=== PATIENT | female | born 1945 | race Asian ===

== ENCOUNTER → 2018-02-25 13:49 | Outpatient (CLI) | payer MEDICARE, OTHER, SELFPAY ==
[2018-02-25 14:20] VITALS: BP 132/71; PULSE 71; RESP 18; TEMP 36.8; O2SAT 95
[2018-02-25 15:17] LABS: Estimated Glomerular Filt Rate > 60.0 mL/min (>60)
[2018-02-25] MEDS: ZOLEDRONIC ACID 5 MG in SODIUM CHLORIDE 0.9% 100 ML 318.75 ML IV (15:44)
== END ==
PROVIDERS: Family Provider Family Medicine; PCP Family Medicine; Visit Provider Family Medicine
DX: M81.0 Age-related osteoporosis without current pathological fracture (principal)
CPT/HCPCS: 36415; 36591; 82565; 84520; 96374; J3489

== ENCOUNTER → 2019-03-29 13:23 | Outpatient (CLI) | payer MEDICARE, OTHER, SELFPAY ==
[2019-03-29 16:24] LABS: Alanine Aminotransferase 13 IU/L (9-52); Albumin 4.3 g/dL (3.5-5.0); Albumin Globulin Ratio 1.3 (1.0-2.8); Alkaline Phosphatase 64 U/L (38-126); Aspartate Aminotransferase 21 IU/L (14-36); Bilirubin Total 0.8 mg/dL (0.2-1.3); Blood Urea Nitrogen 15 mg/dL (7-17); Calcium 9.4 mg/dL (8.4-10.2); Carbon Dioxide 29 mmol/L (22-32); Chloride 104 mmol/L (98-107); Cholesterol 219 mg/dL (140-199); Estimated Glomerular Filt Rate > 60.0 mL/min (>60); Globulin 3.2 g/dL (1.7-4.1); Glucose 109 mg/dL (80-110); HDL Cholesterol 54 mg/dL (40-60); HEMOLYSIS 17 (0-50); LDL Cholesterol Calculated 125 mg/dL (<100); Potassium 3.6 mmol/L (3.4-5.1); Sodium 141 mmol/L (137-145); Total Protein 7.5 g/dL (6.3-8.2); Triglycerides 200 mg/dL (35-150)
[2019-03-29 16:41] LABS: Vitamin D 25 Hydroxy (D3) 18.8 ng/mL (30.0-100.0)
== END ==
PROVIDERS: PCP Family Medicine; Visit Provider Family Medicine
DX: E55.9 Vitamin D deficiency, unspecified (principal); M81.0 Age-related osteoporosis without current pathological fracture; I10 Essential (primary) hypertension; E78.5 Hyperlipidemia, unspecified
CPT/HCPCS: 36415; 80053; 80061; 82306

== ENCOUNTER → 2019-03-31 16:00 | Outpatient (CLI) | payer MEDICARE, OTHER, SELFPAY ==
[2019-04-04 18:39] LABS: Fecal Immunochemical Test NOT DETECTED (NOT DETECTED)
== END ==
PROVIDERS: PCP Family Medicine; Visit Provider Family Medicine
DX: Z12.11 Encounter for screening for malignant neoplasm of colon (principal); Z12.12 Encounter for screening for malignant neoplasm of rectum
CPT/HCPCS: 82274

== ENCOUNTER → 2019-08-18 09:38 | Outpatient (CLI) | payer MEDICARE, OTHER, SELFPAY ==
[2019-08-18 11:01] LABS: BUN Creatinine Ratio 21.7 (6-22); Blood Urea Nitrogen 13 mg/dL (7-17); Calcium 9.4 mg/dL (8.4-10.2); Carbon Dioxide 30 mmol/L (22-32); Chloride 106 mmol/L (98-107); Cholesterol 231 mg/dL (140-199); Estimated Glomerular Filt Rate > 60.0 mL/min (>60); Glucose 110 mg/dL (80-110); HDL Cholesterol 73 mg/dL (40-60); HEMOLYSIS < 15 (0-50); LDL Cholesterol Calculated 139 mg/dL (<100); Potassium 3.6 mmol/L (3.4-5.1); Sodium 140 mmol/L (137-145); Triglycerides 93 mg/dL (35-150)
== END ==
PROVIDERS: PCP Family Medicine; Visit Provider Family Medicine
DX: E78.5 Hyperlipidemia, unspecified (principal); R73.03 Prediabetes; E55.9 Vitamin D deficiency, unspecified; I10 Essential (primary) hypertension
CPT/HCPCS: 36415; 80048; 80061; 82306

== ENCOUNTER → 2020-02-11 11:22 | Outpatient (CLI) | payer MEDICARE, OTHER, SELFPAY ==
[2020-02-11 12:44] LABS: Alanine Aminotransferase 14 IU/L (<35); Albumin 4.3 g/dL (3.5-5.0); Albumin Globulin Ratio 1.3 (1.0-2.8); Alkaline Phosphatase 61 U/L (38-126); Aspartate Aminotransferase 24 IU/L (14-36); BUN Creatinine Ratio 20.3 (6-22); Bilirubin Total 0.8 mg/dL (0.2-1.3); Blood Urea Nitrogen 13 mg/dL (7-17); Calcium 9.3 mg/dL (8.4-10.2); Carbon Dioxide 28 mmol/L (22-32); Chloride 108 mmol/L (98-107); Cholesterol 232 mg/dL (140-199); Estimated Glomerular Filt Rate > 60.0 mL/min (>60); Globulin 3.2 g/dL (1.7-4.1); Glucose 114 mg/dL (80-110); HDL Cholesterol 64 mg/dL (40-60); HEMOLYSIS < 15 (0-50); LDL Cholesterol Calculated 143 mg/dL (<100); Potassium 3.9 mmol/L (3.4-5.1); Sodium 140 mmol/L (137-145); Total Protein 7.5 g/dL (6.3-8.2); Triglycerides 125 mg/dL (35-150)
[2020-02-11 13:18] LABS: Hemoglobin A1C% w Est Avg Glu 5.5 % (4.0-6.0)
== END ==
PROVIDERS: PCP Family Medicine; Referring Provider Family Medicine; Visit Provider Family Medicine
DX: E78.5 Hyperlipidemia, unspecified (principal); I10 Essential (primary) hypertension; R73.03 Prediabetes
CPT/HCPCS: 36415; 80053; 80061; 83036

== ENCOUNTER 2020-08-24 18:36 | Emergency (ER) | payer MEDICARE, OTHER, SELFPAY ==
[2020-08-24 18:40] VITALS: BP 137/62; PULSE 70; RESP 18; TEMP 36.7; O2SAT 99; BMI 21.4
[2020-08-24 18:50] LABS: Add Manual Diff / Slide Review NO; Basophils Absolute Auto 200 /uL (0-100); Basophils Percent Auto 1.7 % (0-2); Eosinophils Absolute Auto 100 /uL (0-450); Eosinophils Percent Auto 0.6 % (2-4); Hematocrit 37.8 % (36-46); Hemoglobin 12.2 g/dL (12.0-16.0); Lymphocytes Absolute Auto 5300 /uL (1100-4500); Lymphocytes Percent Auto 39.5 % (25-40); Mean Corpuscular HGB Conc 32.1 % (30-36); Mean Corpuscular Volume 87.3 fL (80-100); Monocytes Absolute Auto 400 /uL (0-900); Monocytes Percent Auto 2.7 % (3-14); Neutrophils Absolute Auto 7400 /uL (1500-7000); Neutrophils Percent Auto 55.5 % (50-75); Platelet Count 321 X10^3/uL (150-400); Red Blood Cell Count 4.34 X10^6/uL (4.0-5.2); Red Cell Distribution Width 14.5 % (11.6-14.8); White Blood Cell Count 13.4 X10^3/uL (4.5-11.0)
--- NOTE | 2020-08-24 19:14 | ED.CHESTPAIN ---
HPI - Chest Pain General Chief Complaint: Chest Pain Stated Complaint: Chest Pain Time Seen by Provider: 08/24/20 18:37 Source: patient and EMS Mode of arrival: EMS Limitations: no limitations History of Present Illness HPI narrative: Patient is a 75-year-old female brought in by EMS for evaluation of symptoms that occurred approximately 1 hour prior to arrival. She states she was laying on the couch watching TV when she had a fairly sudden onset of sharp retrosternal chest pain. She also states that was in her upper abdomen. The pain continued to increase over the next several minutes to the point where she states it was very intense. She was not having any shortness of breath. She did not think it was worse with palpation or movement or breathing. Her contacted EMS. After EMS arrived the patient had 1 episode where she vomited a couple times. There was no blood in the vomit. After the vomiting she stated that her symptoms improved tremendously. She was given aspirin and nitroglycerin by EMS. For the time she arrives here in the emergency department she is completely asymptomatic. Patient's stated that she had a very similar episode about 10 years ago where she was having chest discomfort and shortly after arriving to the emergency department she vomited and her symptoms then resolved. Related Data Home Medications Medication Instructions Recorded Confirmed ACETAMINOPHEN (TYLENOL ARTHRITIS) 650 mg PO SEE INSTRUCTIONS #0 02/25/13 04/26/20 Previous Rx's Medication Instructions Recorded lidocaine [Lidoderm] 1 patch TOPICAL Q12H #1 box 05/01/17 diclofenac sodium [Voltaren] 1 tobias TOPICAL BID PRN #100 gm 11/28/17 [zometa] 4 mg IV X1 #4 mg 02/10/18 ketoconazole 2 % topical cream 1 applictn TOP DAILY #30 gram 02/27/18 varicella-zoster [id number]-[id number] (PF) 50 50 mcg IM ONCE #1 each 02/27/18 mcg/0.5 mL IM susp, kit cholecalciferol (vitamin D3) 1,250 50,000 unit PO QWEEK #8 cap 05/26/19 mcg (50,000 unit) capsule bupropion HCl 150 mg tablet,12 hr 150 mg PO BID #60 each 02/14/20 sustained-release amlodipine 10 mg tablet 10 mg PO DAILY #90 tab 04/26/20 atorvastatin 20 mg tablet 20 mg PO BEDTIME #90 tab 08/09/20 Allergies Allergy/AdvReac Type Severity Reaction Status Date / Time Penicillins [PENICILLINS] Allergy Unknown FAMILY HX Verified 04/26/20 11:51 Review of Systems Constitutional Constitutional: Denies fever(s) Cardiovascular Cardiovascular: Reports chest pain and Denies dyspnea Respiratory Respiratory: Denies dyspnea Gastrointestinal Gastrointestinal: Denies change in bowel habits and Reports vomiting Genitourinary Genitourinary: Denies dysuria Genitourinary: Denies dysuria Musculoskeletal Musculoskeletal: Denies arthralgias and Denies myalgias Integumentary/Breasts Skin/Breast: Denies rash Neurologic Neurologic: Denies behavioral changes Psychiatric Psychiatric: Denies behavioral changes Hematologic/Lymphatic Hematologic/Lymphatic: Denies easy bleeding and Denies easy bruising Allergic/Immunologic Allergic/Immunologic: Denies urticaria Patient History Medical History Essential hypertension (Chronic 05/01/11) Gastroesophageal reflux disease (Chronic 04/05/13) 5 (Resolved) Hyperlipidemia (Chronic 05/06/14) Osteoarthritis (Chronic 05/01/11) Osteoporosis (Chronic 05/17/15) Postherpetic neuralgia (Chronic 05/01/17) Shingles (Resolved 03/27/17) Tinnitus (Resolved) Tobacco use disorder (Chronic 05/01/11) Surgical History (Updated 07/22/18 @ 16:41 by Lizette Holloway) History of endoscopy (Resolved 07/05/13) History of esophagogastroduodenoscopy (EGD) (Resolved 05/27/13) History of laparoscopic cholecystectomy (Resolved 07/06/13) Status post blepharoplasty of both eyes (Resolved 08/26/12) Social History Smoking Status: Current every day smoker quit status: considering quitting Smoking Status: Current every day smoker Substance Use Type: marijuana Exam Initial Vital Signs Initial Vital Signs: Vital Signs Temperature 98.1 F 08/24/20 18:40 Pulse Rate 70 08/24/20 18:40 Respiratory Rate 18 08/24/20 18:40 Blood Pressure 137/62 08/24/20 18:40 Pulse Oximetry 99 08/24/20 18:40 Const General: cooperative and comfortable Limitations: mental status not altered HENMT Head: normal to inspection and normocephalic Resp Effort & Inspection: normal respiratory effort Auscultation: clear to auscultation bilaterally Cardio Rate: regular rate Rhythm: regular rhythm GI Inspection: non-distended Palpation: soft Skin Lesions: no lesions Rashes: no rashes Neuro General: patient alert and patient awake Cognition: normal cognition Speech: speech normal Extrem General: normal to inspection and capillary refill normal Psych Appearance: grossly normal and well kempt Scores GCS Hubert coma scale eye opening: Spontaneous [place] coma scale verbal response: Orientated [place] coma scale motor response: Obey commands Hubert coma scale total score: 15 Course Orders Ordered: ED Orders 08/24/20 18:20 Complete Blood Count AUTO DIFF Stat Comprehensive Metabolic Panel Stat Lipase Stat Troponin & CK Cardiac Panel Stat 08/24/20 18:38 EKG-12 Lead Stat Vital Signs Vital signs: Vital Signs - 8 hr 08/24/20 18:40 08/24/20 19:18 08/24/20 19:30 Temperature 98.1 F Pulse Rate 70 65 65 Respiratory Rate 18 23 23 Blood Pressure 137/62 133/60 132/59 L Pulse Oximetry 99 98 97 08/24/20 20:00 Temperature Pulse Rate 67 Respiratory Rate 25 H Blood Pressure 133/60 Pulse Oximetry 98 MDM - Chest Pain Lab Data Attestation: I reviewed the patient's lab results. Result diagrams: 08/24/20 18:20 08/24/20 18:20 Labs: Lab Results 08/24/20 08/24/20 Range/Units 18:20 18:20 WBC 13.4 H (4.5-11.0) X10^3/uL RBC 4.34 (4.0-5.2) X10^6/uL Hgb 12.2 (12.0-16.0) g/dL Hct 37.8 (36-46) % MCV 87.3 (80-100) fL MCH 28.0 (26-34) PG MCHC 32.1 (30-36) % RDW 14.5 (11.6-14.8) % Plt Count 321 (150-400) X10^3/uL Neut % (Auto) 55.5 (50-75) % Lymph % (Auto) 39.5 (25-40) % [place] % (Auto) 2.7 L (3-14) % Eos % (Auto) 0.6 L (2-4) % Baso % (Auto) 1.7 (0-2) % Neut # (Auto) 7400 H (0638-4773) /uL Lymph # (Auto) 5300 H (5745-6631) /uL [place] # (Auto) 400 (0-900) /uL Eos # (Auto) 100 (0-450) /uL Baso # (Auto) 200 H (0-100) /uL Sodium 140 (137-145) mmol/L Potassium 3.2 L (3.4-5.1) mmol/L Chloride 107 (98-107) mmol/L Carbon Dioxide 24 (22-32) mmol/L BUN 15 (7-17) mg/dL Creatinine 0.56 (0.52-1.04) mg/dL Estimated GFR > 60.0 (>60) mL/min BUN/Creatinine Ratio 26.8 H (6-22) Glucose 144 H (80-110) mg/dL Calcium 9.3 (8.4-10.2) mg/dL Total Bilirubin 0.4 (0.2-1.3) mg/dL AST 42 H (14-36) IU/L ALT 36 H (<35) IU/L Alkaline Phosphatase 70 (38-126) U/L Total Creatine Kinase 50 (30-135) U/L CK-MB (CK-2) TNP CK-MB (CK-2) Rel Index TNP Troponin I < 0.012 (0.01-0.034) ng/mL Total Protein 7.8 (6.3-8.2) g/dL Albumin 4.2 (3.5-5.0) g/dL Globulin 3.6 (1.7-4.1) g/dL Albumin/Globulin Ratio 1.2 (1.0-2.8) Lipase 83 (23-300) U/L ECG Data Attestation: I personally reviewed and interpreted this ECG as follows: Prior ECG tracings: not available for review Interpretation: Sinus rhythm Ventricular rate is 71 Normal axis Normal QRS Normal QTC No ST T wave changes MDM Narrative Medical decision making narrative: Patient with a nonischemic EKG. Asymptomatic. Troponin negative. Symptoms resolved after the episode of vomiting. I do have low suspicion for ACS and more suspicion for a GI etiology the symptoms. We did discuss starting her on reflux medications. She is going to contact her primary provider for follow-up. She expressed understanding and agreement. Discharge Plan Departure Patient Disposition: Home Clinical Impression: Atypical chest pain, Vomiting Discharge Date/Time: 08/24/20 20:43 Instructions: DI for Atypical Chest Pain, DI for Vomiting -- Adult Activity Restrictions/Additional Instructions: Continue all of your medications as directed and I also recommend that you start taking a medicine called famotidine. This can be purchased [id number]. Helps with potential reflux issues like we discussed. Contact your primary provider to discuss the indications for a endoscopy. Return to the emergency department for any new or worsening symptoms Prescriptions: No Action ACETAMINOPHEN (TYLENOL ARTHRITIS) 650 mg PO SEE INSTRUCTIONS Qty: 0 RF: 0 lidocaine [Lidoderm] 1 EACH adhesive patch,medicated 1 patch Topical Q12H Qty: 1 RF: 0 diclofenac sodium [Voltaren] 1 % gel 1 tobias Topical BID PRNQty: 100 RF: 0 [zometa] 4 mg IV X1 Qty: 4 RF: 0 atorvastatin 20 mg tablet 20 mg PO BEDTIME Qty: 90 RF: 0 amlodipine 10 mg tablet 10 mg PO DAILY Qty: 90 RF: 1 ketoconazole 2 % cream 1 applictn TOP DAILY Qty: 30 RF: 0 varicella-zoster gE-AS01B (PF) [Shingrix (PF)] 50 mcg/0.5 mL suspension for reconstitution 50 mcg IM ONCE Qty: 1 RF: 0 cholecalciferol (vitamin D3) 50,000 unit capsule 50,000 unit PO QWEEK Qty: 8 RF: 0 bupropion HCl 150 mg tablet sustained-release 12 hr 150 mg PO BID Qty: 60 RF: 1 Referrals: Liset Edwards DO [Primary Care Provider] -
[2020-08-24 19:18] VITALS: BP 133/60; PULSE 65; RESP 23; O2SAT 98
[2020-08-24 19:30] VITALS: BP 132/59; PULSE 65; RESP 23; O2SAT 97
[2020-08-24 19:50] LABS: Alanine Aminotransferase 36 IU/L (<35); Albumin 4.2 g/dL (3.5-5.0); Albumin Globulin Ratio 1.2 (1.0-2.8); Alkaline Phosphatase 70 U/L (38-126); Aspartate Aminotransferase 42 IU/L (14-36); BUN Creatinine Ratio 26.8 (6-22); Bilirubin Total 0.4 mg/dL (0.2-1.3); Blood Urea Nitrogen 15 mg/dL (7-17); Calcium 9.3 mg/dL (8.4-10.2); Carbon Dioxide 24 mmol/L (22-32); Chloride 107 mmol/L (98-107); Creatine Kinase 50 U/L (30-135); Estimated Glomerular Filt Rate > 60.0 mL/min (>60); Globulin 3.6 g/dL (1.7-4.1); Glucose 144 mg/dL (80-110); HEMOLYSIS < 15 (0-50); Lipase 83 U/L (23-300); Potassium 3.2 mmol/L (3.4-5.1); Sodium 140 mmol/L (137-145); Total Protein 7.8 g/dL (6.3-8.2)
[2020-08-24 20:00] VITALS: BP 133/60; PULSE 67; RESP 25; O2SAT 98
[2020-08-24 20:01] LABS: Troponin I < 0.012 ng/mL (0.01-0.034)
== END 2020-08-24 20:43 | disposition home or self-care (01) ==
PROVIDERS: Emergency Provider Emergency Medicine; PCP Family Medicine
DX: R07.89 Other chest pain (principal); R11.10 Vomiting, unspecified
CPT/HCPCS: 80053; 82550; 83690; 84484; 85025; 93005; 93010; 99283; 99284

== ENCOUNTER → 2020-08-31 12:14 | Outpatient (CLI) | payer MEDICARE, OTHER, SELFPAY ==
[2020-08-31 13:19] LABS: Add Manual Diff / Slide Review NO; Basophils Absolute Auto 0 /uL (0-100); Basophils Percent Auto 0.4 % (0-2); Eosinophils Absolute Auto 200 /uL (0-450); Eosinophils Percent Auto 2.2 % (2-4); Hematocrit 36.9 % (36-46); Hemoglobin 12.4 g/dL (12.0-16.0); Lymphocytes Absolute Auto 2000 /uL (1100-4500); Lymphocytes Percent Auto 25.2 % (25-40); Mean Corpuscular HGB Conc 33.6 % (30-36); Mean Corpuscular Hemoglobin 29.3 PG (26-34); Mean Corpuscular Volume 87.3 fL (80-100); Monocytes Absolute Auto 500 /uL (0-900); Neutrophils Absolute Auto 5300 /uL (1500-7000); Neutrophils Percent Auto 66.2 % (50-75); Platelet Count 442 X10^3/uL (150-400); Red Blood Cell Count 4.23 X10^6/uL (4.0-5.2); Red Cell Distribution Width 14.6 % (11.6-14.8); White Blood Cell Count 8.1 X10^3/uL (4.5-11.0)
== END ==
PROVIDERS: PCP Family Medicine; Referring Provider Family Medicine; Visit Provider Family Medicine
DX: R04.0 Epistaxis (principal); R07.89 Other chest pain
CPT/HCPCS: 36415; 85025

== ENCOUNTER → 2020-09-11 10:07 | Outpatient (CLI) | payer MEDICARE, OTHER, SELFPAY ==
[2020-09-11 10:51] LABS: COVID19 -Nasal RAPID Negative (Negative)
== END ==
PROVIDERS: PCP Family Medicine; Visit Provider Family Medicine
DX: Z01.812 Encounter for preprocedural laboratory examination (principal); Z11.59 Encounter for screening for other viral diseases
CPT/HCPCS: 87635; C9803

== ENCOUNTER → 2020-09-12 09:27 | Outpatient (CLI) | payer MEDICARE, OTHER, SELFPAY ==
--- NOTE | 2020-09-12 09:29 | DI.NM.S_ITS ---
PROCEDURE: NM ERIC PERF SPECT REST & STR Rest and exercise myocardial perfusion SPECT with gated imaging and ejection fraction RADIOPHARMACEUTICAL: 11.9 mCi Tc-99m sestamibi IV at rest and 26.0 mCi Tc-99m sestamibi IV at peak exercise. A one day-protocol was performed. INDICATIONS: Chest pain TECHNIQUE: Radiopharmaceutical was injected at peak stress test, and also at rest. SPECT images were obtained. SPECT myocardial perfusion images were displayed in short axis, horizontal long axis, and vertical long axis views. Gated images were reviewed using [employer] software. COMPARISON: None. CARDIAC STRESS: A standard Dre treadmill exercise tolerance test was performed by the patient under the supervision of an attending staff. The patient exercised for 3 minutes and 50 seconds; functional aerobic impairment (ARMINDA) is +20% on sedentary scale. Hemodynamic data: There is normal blood pressure and heart rate response to exercise stress. Patient achieved 96% of maximum predicted heart rate at peak exercise. Symptoms: Patient denied chest pain during exercise. EKG: No diagnostic EKG changes of ischemia; no ectopy. FINDINGS: Raw data: There is good myocardial labeling by radiotracer. No significant motion artifacts. Xnis-az-[id number] ratio is 0.34 (normal is less than 0.38 for sestamibi tracer, and less than 0.50 for thallium tracer). Left ventricle function: Gated images demonstrate normal left ventricle wall thickening. No segmental wall motion abnormality. No transient ischemic dilation; TID is 0.94 (normal less than 1.3). The left ventricle resting end-diastolic volume is 73 mL. Left ventricle stress ejection fraction is 87%; normal values are above 45%. Myocardial perfusion: There is normal distribution of activity in the left and right ventricular myocardium. No fixed or reversible perfusion defects. IMPRESSION: Low risk, normal treadmill nuclear stress test. 1) No perfusion evidence of ischemia or infarction. 2) Normal left ventricular size, wall motion, and systolic function (EF post stress 87%). 3) No ECG evidence of ischemia or infarction. 4) No angina during the study. 5) Reduced exercise tolerance (4.6 METs, ARMINDA +20%). Target heart rate achieved. Appropriate BP response to exercise. 6) Compared to the nuclear stress test done 04/15/2013, no significant change. Dictated by: Eva Hernández MD on 09/12/2020 at 17:26 Approved by: Eva Hernández MD on 09/12/2020 at 17:29
--- NOTE | 2020-09-12 14:32 | PM.TREADMILL ---
Cardiac Stress Test Report Referral & Results Date Patient Seen: 09/12/20 Requesting provider: Liset Edwards Indication: Chest discomfort Rest ECG: Unremarkable Procedure Note: Today following both written and verbal informed consent the patient was exercised according to a standard Dre protocol patient went for a total of 3 minutes 50 seconds at stage I Dre protocol, achieving a maximum heart rate of 138 maximum systolic blood pressure of 186. This is approximately 4.6 METS. Exercise was terminated at this point because of patient was unable to go any faster. Patient was also given Cardiolite through a previously started Hep-Lock IV by the diagnostic imaging staff approximately 1 minute prior to the cessation of exercise. No ST-T segment changes, normal heart rate and blood pressure response. Function aerobic impairment rates about 0 on the sedentary scale. Oxygen saturation 96% at peak exercise Impression: No evidence of ischemia Please see perfusion imaging report as well Please note: Actual ECG tracings can be found in the PACS system.
== END ==
PROVIDERS: PCP Family Medicine; Referring Provider Family Medicine; Visit Provider Family Medicine
DX: R07.9 Chest pain, unspecified (principal); R07.89 Other chest pain
CPT/HCPCS: 78452; 93016; 93017; 93018; A9502

== ENCOUNTER → 2021-12-05 12:40 | Outpatient (CLI) | payer MEDICARE, OTHER, SELFPAY ==
[2021-12-05 13:53] LABS: Alanine Aminotransferase 18 IU/L (<35); Albumin 4.1 g/dL (3.5-5.0); Albumin Globulin Ratio 1.4 (1.0-2.8); Alkaline Phosphatase 84 U/L (38-126); Aspartate Aminotransferase 21 IU/L (14-36); BUN Creatinine Ratio 26.5 (6-22); Bilirubin Total 0.5 mg/dL (0.2-1.3); Blood Urea Nitrogen 18 mg/dL (7-17); Calcium 9.4 mg/dL (8.4-10.2); Carbon Dioxide 29 mmol/L (22-32); Chloride 106 mmol/L (98-107); Cholesterol 155 mg/dL (140-199); Estimated Glomerular Filt Rate > 60.0 mL/min (>60); Globulin 2.9 g/dL (1.7-4.1); Glucose 120 mg/dL (80-110); HDL Cholesterol 77 mg/dL (40-60); HEMOLYSIS < 15 (0-50); LDL Cholesterol Calculated 48 mg/dL (<100); Potassium 4.1 mmol/L (3.4-5.1); Sodium 140 mmol/L (137-145); Triglycerides 151 mg/dL (35-150)
[2021-12-05 16:54] LABS: Creatinine Urine Random 215.9 mg/dL
[2021-12-05 16:57] LABS: Microalbumi Creatinin Ratio Ur 22.6 ug/mg CR (<30); Microalbumin Urine Random 4.9 mg/dL (0-1.6)
== END ==
PROVIDERS: PCP Family Medicine; Referring Provider Family Medicine; Visit Provider Family Medicine
DX: E78.5 Hyperlipidemia, unspecified (principal); I10 Essential (primary) hypertension
CPT/HCPCS: 36415; 80053; 80061; 82043; 82570

== ENCOUNTER 2022-04-03 16:55 | Inpatient (IN) | payer MEDICARE, OTHER, SELFPAY ==
[2022-04-03 17:13] VITALS: BP 104/51; PULSE 72; RESP 16; TEMP 37.5; O2SAT 96; BMI 20.9
[2022-04-03 17:33] LABS: Add Manual Diff / Slide Review NO; Basophils Absolute Auto 0 /uL (0-100); Basophils Percent Auto 0.3 % (0-2); Eosinophils Absolute Auto 100 /uL (0-450); Eosinophils Percent Auto 0.7 % (2-4); Hematocrit 30.7 % (36-46); Hemoglobin 10.3 g/dL (12.0-16.0); Lymphocytes Absolute Auto 3500 /uL (1100-4500); Lymphocytes Percent Auto 28.4 % (25-40); Mean Corpuscular HGB Conc 33.6 % (30-36); Mean Corpuscular Hemoglobin 29.4 PG (26-34); Mean Corpuscular Volume 87.6 fL (80-100); Monocytes Absolute Auto 500 /uL (0-900); Monocytes Percent Auto 3.9 % (3-14); Neutrophils Absolute Auto 8200 /uL (1500-7000); Neutrophils Percent Auto 66.7 % (50-75); Platelet Count 344 X10^3/uL (150-400); Red Blood Cell Count 3.51 X10^6/uL (4.0-5.2); Red Cell Distribution Width 14.1 % (11.6-14.8); White Blood Cell Count 12.3 X10^3/uL (4.5-11.0)
[2022-04-03 17:34] LABS: INR 1.1 (0.9-1.3); Prothrombin Time 11.9 SECONDS (10.1-12.7)
[2022-04-03 17:36] LABS: PTT Partial Thromboplastin Tim 29 SECONDS (26.4-36.2)
[2022-04-03 17:38] LABS: Alanine Aminotransferase 19 IU/L (<35); Albumin 3.6 g/dL (3.5-5.0); Albumin Globulin Ratio 1.4 (1.0-2.8); Alkaline Phosphatase 42 U/L (38-126); Aspartate Aminotransferase 27 IU/L (14-36); BUN Creatinine Ratio 56.9 (6-22); Bilirubin Total 0.9 mg/dL (0.2-1.3); Blood Urea Nitrogen 33 mg/dL (7-17); Calcium 8.7 mg/dL (8.4-10.2); Carbon Dioxide 26 mmol/L (22-32); Chloride 107 mmol/L (98-107); Estimated Glomerular Filt Rate > 60 mL/min (>60); Globulin 2.6 g/dL (1.7-4.1); Glucose 146 mg/dL (80-110); HEMOLYSIS 41 (0-50); Potassium 3.7 mmol/L (3.4-5.1); Sodium 136 mmol/L (137-145); Total Protein 6.2 g/dL (6.3-8.2)
[2022-04-03 18:02] VITALS: PULSE 70; RESP 19; O2SAT 97
[2022-04-03 18:04] VITALS: BP 114/58; PULSE 74; RESP 16; O2SAT 97
--- NOTE | 2022-04-03 18:12 | ED.GIBLEED ---
HPI - GI Bleed General Chief complaint: GI Bleed Stated complaint: GI bleed Time Seen by Provider: 04/03/22 18:07 Source: patient and family Mode of arrival: EMS History of Present Illness HPI Narrative: 76F daily smoker with history of hypertension and hyperlipidemia presents with ?multiple episodes of vomiting bright red blood over the course of last night and this morning. Additionally she has had the passage of dark black stool. She has a history of bleeding ulcers in the past in 2011 and possibly 2015. She denies any heavy alcohol or liver history. She does not take any blood thinners or anti-inflammatories given her history of ulcers. She has begun to feel a bit of burning in her upper abdomen and feels lightheaded. She has had no fever or chills denies any chest pain or shortness of breath. Related Data Home Medications Medication Instructions Recorded Confirmed ACETAMINOPHEN (TYLENOL ARTHRITIS) 650 mg PO SEE INSTRUCTIONS #0 02/25/13 04/03/22 Previous Rx's Medication Instructions Recorded diclofenac sodium 1 % topical gel 1 tobias TOPICAL BID PRN #100 gm 11/28/17 (Voltaren) amlodipine 10 mg tablet 10 mg PO DAILY #90 tab 01/30/22 atorvastatin 20 mg tablet See Rx Instructions .ROUTE 01/31/22 .COMPLEX #90 tab Allergies Allergy/AdvReac Type Severity Reaction Status Date / Time Penicillins [PENICILLINS] Allergy Unknown FAMILY HX Verified 12/06/21 13:48 Review of Systems Review of Systems Narrative: GENERAL: See HPI HEENT: Denies sinus pain, ear pain, sore throat, difficulty swallowing, dizziness. RESPIRATORY: Denies dyspnea, cough, wheezing, hemoptysis, sputum. CARDIOVASCULAR: Denies chest pain, palpitations, orthopnea, edema, GASTROINTESTINAL: See HPI : Denies dysuria, frequency, incontinence, hematuria, urinary retention. MUSCULOSKELETAL: denies weakness, joint pain, or bony pain SKIN: Denies rash, skin lesions, or other NEUROLOGIC: Denies weakness, headache, numbness, change in speech, confusion, seizures, incoordination. PSYCHIATRIC: No concerning psychosocial issues. 12 point review of systems is negative except for those stated above Patient History Medical History Acute right-sided low back pain without sciatica Chronic pain in right shoulder Essential hypertension (07/06/11) Gastroesophageal reflux disease (04/05/13) 5 Hyperlipidemia (05/06/14) Osteoarthritis (05/01/11) Osteoporosis (05/17/15) Pelvic somatic dysfunction Postherpetic neuralgia (05/01/17) Sacral region somatic dysfunction Segmental and somatic dysfunction of abdomen and other regions Shingles (03/27/17) Tinnitus Tobacco use disorder (05/01/11) Surgical History History of endoscopy (07/05/13) History of esophagogastroduodenoscopy (EGD) (05/27/13) History of laparoscopic cholecystectomy (07/06/13) Status post blepharoplasty of both eyes (08/26/12) Family History Father Old age Mother Renal failure Brother Cerebral aneurysm Brother Down's syndrome Social History household members: spouse Smoking Status: Current some day smoker quit status: considering quitting alcohol intake: current Smoking Status: Current some day smoker Substance Use Type: marijuana Exam Narrative Exam Narrative: GENERAL: [76] year old patient appears stated age. Well-developed patient, in mild distress. HEAD: Atraumatic. Normocephalic. EYES: Pupils equal round and reactive. Extraocular motions intact. No scleral icterus. No injection or drainage. ENT: Nose without bleeding, purulent drainage. Throat without erythema, tonsillar hypertrophy or exudate. Airway patent. NECK: Trachea midline. Non tender CARDIOVASCULAR: Regular rate and rhythm without murmurs, gallops, or rubs. RESPIRATORY: Clear to auscultation. Breath sounds equal bilaterally. No wheezes, rales, or rhonchi. GASTROINTESTINAL: Abdomen soft, non-tender, nondistended. EXTREMITIES: No edema or joint tenderness. BACK: Nontender without deformity or crepitance. No flank tenderness. NEURO: AOx3. SKIN: No rash or erythema of visible areas Initial Vital Signs Initial Vital Signs: Vital Signs Temperature 99.5 F 04/03/22 17:13 Pulse Rate 72 04/03/22 17:13 Respiratory Rate 16 04/03/22 17:13 Blood Pressure 104/51 L 04/03/22 17:13 Pulse Oximetry 96 06/08/22 17:13 Course Course Course Narrative: Sigourney-Blatchford Bleeding Score (GBS) from [email or web address] on 04/03/2022 All calculations should be rechecked by clinician prior to use RESULT SUMMARY: 7 points A GBS greater than zero suggests a ?High Risk? GI bleed that is likely to require ?medical intervention?: transfusion, endoscopy, or surgery. A higher GBS also correlated with a higher likelihood of needing intervention (scores >= are associated with >50% risk of needing intervention) INPUTS: Hemoglobin ?> 10.3 g/dL BUN ?> 56.9 mg/dL Initial systolic BP ?> 107 mm Hg Sex ?> 1 = Female Heart rate >=00 ?> 0 = No Melena present ?> 1 = Yes Recent syncope ?> 0 = No Hepatic disease history ?> 0 = No Cardiac failure present ?> 0 = No 1947 -working on obtaining records from [facility] from 2016 visit Orders Ordered: ED Orders 04/03/22 17:43 COVID19 -Nasal RAPID/Pre-Proc Stat Acetaminophen (Acetaminophen 325 Mg Tablet) 650 mg PO Q6HR PRN PRN Reason: Fever/Mild Pain (1-3) Amlodipine Besylate (Amlodipine 5 Mg Tablet) 10 mg PO DAILY ONUR Atorvastatin Calcium (Atorvastatin 20 Mg Tablet) 20 mg PO BEDTIME [facility] Last Admin: 04/03/22 20:53 Dose: 20 mg Documented by: [email or web address] Sodium Chloride (Normal Saline 0.9%) 1,000 mls @ 100 mls/hr IV CONT [facility] Last Admin: 04/03/22 21:53 Dose: 100 mls/hr Documented by: COLLIN Ondansetron HCl (Ondansetron 4 Mg/2 Ml Inj) 4 mg IV Q6HR PRN PRN Reason: Nausea And Vomiting Pantoprazole Sodium (Pantoprazole 40 Mg Vial) 40 mg IV BID [facility] Last Admin: 04/03/22 21:53 Dose: 40 mg Documented by: COLLIN Discontinued Medications Pantoprazole Sodium (Pantoprazole 40 Mg Vial) 80 mg IV NOW ONE Stop: 04/03/22 18:12 Last Admin: 04/03/22 18:37 Dose: 80 mg Documented by: TATIANA Consultations Consultation #1: discussed with Dr. Dwyer (Gen Surg). Happy to consult. Recommends PPI, NPO after midnight. No need for ABX. Admit to hospitalist Vital Signs Vital signs: Vital Signs - 8 hr 04/03/22 18:30 Pulse Rate 78 Respiratory Rate 25 H Blood Pressure 117/57 L Pulse Oximetry 97 MDM - GI Bleed Lab Data Result diagrams: 04/03/22 22:51 04/03/22 16:50 Labs: Lab Results 04/03/22 04/03/22 04/03/22 Range/Units 16:50 16:50 16:50 WBC 12.3 H (4.5-11.0) X10^3/uL RBC 3.51 L (4.0-5.2) X10^6/uL Hgb 10.3 L (12.0-16.0) g/dL Hct 30.7 L (36-46) % MCV 87.6 (80-100) fL MCH 29.4 (26-34) PG MCHC 33.6 (30-36) % RDW 14.1 (11.6-14.8) % Plt Count 344 (150-400) X10^3/uL Neut % (Auto) 66.7 (50-75) % Lymph % (Auto) 28.4 (25-40) % [place] % (Auto) 3.9 (3-14) % Eos % (Auto) 0.7 L (2-4) % Baso % (Auto) 0.3 (0-2) % Neut # (Auto) 8200 H (9320-6040) /uL Lymph # (Auto) 3500 (2320-1714) /uL [place] # (Auto) 500 (0-900) /uL Eos # (Auto) 100 (0-450) /uL Baso # (Auto) 0 (0-100) /uL PT 11.9 (10.1-12.7) SECONDS INR 1.1 (0.9-1.3) APTT 29 (26.4-36.2) SECONDS Sodium 136 L (137-145) mmol/L Potassium 3.7 (3.4-5.1) mmol/L Chloride 107 (98-107) mmol/L Carbon Dioxide 26 (22-32) mmol/L BUN 33 H (7-17) mg/dL Creatinine 0.58 (0.52-1.04) mg/dL Estimated GFR > 60 (>60) mL/min BUN/Creatinine Ratio 56.9 H (6-22) Glucose 146 H (80-110) mg/dL Calcium 8.7 (8.4-10.2) mg/dL Total Bilirubin 0.9 (0.2-1.3) mg/dL AST 27 (14-36) IU/L ALT 19 (<35) IU/L Alkaline Phosphatase 42 (38-126) U/L Total Protein 6.2 L (6.3-8.2) g/dL Albumin 3.6 (3.5-5.0) g/dL Globulin 2.6 (1.7-4.1) g/dL Albumin/Globulin Ratio 1.4 (1.0-2.8) SARS-CoV-2 (PCR) (Negative) Blood Type Antibody Screen 04/03/22 04/03/22 Range/Units 17:11 17:43 WBC (4.5-11.0) X10^3/uL RBC (4.0-5.2) X10^6/uL Hgb (12.0-16.0) g/dL Hct (36-46) % MCV (80-100) fL MCH (26-34) PG MCHC (30-36) % RDW (11.6-14.8) % Plt Count (150-400) X10^3/uL Neut % (Auto) (50-75) % Lymph % (Auto) (25-40) % [place] % (Auto) (3-14) % Eos % (Auto) (2-4) % Baso % (Auto) (0-2) % Neut # (Auto) (7391-7795) /uL Lymph # (Auto) (4188-1111) /uL [place] # (Auto) (0-900) /uL Eos # (Auto) (0-450) /uL Baso # (Auto) (0-100) /uL PT (10.1-12.7) SECONDS INR (0.9-1.3) APTT (26.4-36.2) SECONDS Sodium (137-145) mmol/L Potassium (3.4-5.1) mmol/L Chloride (98-107) mmol/L Carbon Dioxide (22-32) mmol/L BUN (7-17) mg/dL Creatinine (0.52-1.04) mg/dL Estimated GFR (>60) mL/min BUN/Creatinine Ratio (6-22) Glucose (80-110) mg/dL Calcium (8.4-10.2) mg/dL Total Bilirubin (0.2-1.3) mg/dL AST (14-36) IU/L ALT (<35) IU/L Alkaline Phosphatase (38-126) U/L Total Protein (6.3-8.2) g/dL Albumin (3.5-5.0) g/dL Globulin (1.7-4.1) g/dL Albumin/Globulin Ratio (1.0-2.8) SARS-CoV-2 (PCR) Negative (Negative) Blood Type O Positive Antibody Screen Negative Discharge Plan Departure Patient Disposition: Admitted As Inpatient Clinical Impression: Acute upper gastrointestinal bleeding Admit Date/Time: 04/03/22 20:14 Admit Provider: Park Bunch
[2022-04-03 18:15] LABS: COVID19 -Nasal RAPID Negative (Negative)
[2022-04-03 18:30] VITALS: BP 117/57; PULSE 78; RESP 25; O2SAT 97
[2022-04-03] MEDS: PANTOPRAZOLE 40 MG VIAL 80 MG IV (18:37)
--- NOTE | 2022-04-03 20:47 | P.HP_ITS ---
History of Present Illness History of Present Illness Date Patient Seen: 04/03/22 Time Patient Seen: 22:30 Chief complaint: GI bleed Narrative: Kirk Orellana is a pleasant 76 y.o. female smoker with a history of peptic ulcer disease, hypertension and hyperlipidemia presented with a one day history of having dark tarry stool X 2, then bright red hematemasis with clots X 2 over the course of 24 hours. She has been feeling nauseous, upper epigastric pain, lightheadedness and feeling out of sorts. She denies fever, sweats or chills, difficulty breathing, chest pain or constipation. Denies history of upper or lower extremity neuropathy or lower extremity swelling. Patient is borderline febrile 99, blood pressure 116/50, heart rate 72, respiratory rate 16, oxygen saturation of 99% on room air she weighs 50 kg the BMI of 21.5. She has a mildly elevated WBC at 11.5 RBC 3.25 hemoglobin 9.6 and hematocrit 28.0 down from a hemoglobin and hematocrit 10.3 and 30.7 respectively. Does have mild left shift at 7700, sodium 136, BUN 33 glucose 146 COVID-19 PCR is negative and she is O positive blood type. Patient History Medical History Acute right-sided low back pain without sciatica Chronic pain in right shoulder Essential hypertension (05/01/11) Gastroesophageal reflux disease (04/05/13) 5 Hyperlipidemia (05/06/14) Osteoarthritis (05/01/11) Osteoporosis (05/17/15) Pelvic somatic dysfunction Postherpetic neuralgia (05/01/17) Sacral region somatic dysfunction Segmental and somatic dysfunction of abdomen and other regions Shingles (03/27/17) Tinnitus Tobacco use disorder (05/01/11) Surgical History History of endoscopy (07/05/13) History of esophagogastroduodenoscopy (EGD) (05/27/13) History of laparoscopic cholecystectomy (07/06/13) Status post blepharoplasty of both eyes (08/26/12) Family & Social History Family History Father Old age Mother Renal failure Brother Cerebral aneurysm Brother Down's syndrome Safety & Behavioral: Feels Safe in Current Yes Environment Been Physically Hurt or No Threatened By a Person Tobacco & Substance use: Smoking Status 3 cigarettes/day smoker Substance Use Type marijuana Meds Home Medications and Allergies Home Medications Medication Instructions Recorded Confirmed Type ACETAMINOPHEN (TYLENOL ARTHRITIS) 650 mg PO SEE INSTRUCTIONS #0 02/25/13 04/03/22 History diclofenac sodium 1 % topical gel 1 tobias TOPICAL BID PRN #100 gm 11/28/17 04/03/22 Rx (Voltaren) amlodipine 10 mg tablet 10 mg PO DAILY #90 tab 01/30/22 04/03/22 Rx atorvastatin 20 mg tablet See Rx Instructions .ROUTE 01/31/22 04/03/22 Rx .COMPLEX #90 tab Allergies Allergy/AdvReac Type Severity Reaction Status Date / Time Penicillins [PENICILLINS] Allergy Unknown FAMILY HX Verified 12/06/21 13:48 Review of Systems Review of Systems ROS: Yes All systems reviewed with the patient and are negative except as otherwise documented Exam Vital Signs (past 8 hours): - 04/03/22 17:13 04/03/22 18:02 04/03/22 18:04 Temperature 99.5 F Pulse Rate 72 70 74 Respiratory Rate 16 19 16 Blood Pressure 104/51 L 114/58 L Pulse Oximetry 96 97 97 04/03/22 18:30 Temperature Pulse Rate 78 Respiratory Rate 25 H Blood Pressure 117/57 L Pulse Oximetry 97 Oxygen Delivery Method Room Air Narrative Exam Narrative: Gen: Alert, oriented, thin 76 y.o. F[place]ian female, NAD HEENT: normocephalic, atraumatic, conjunctiva clear, sclera non-icteric, oral mucosa pink and moist Neck: supple, full ROM, no JVD, trachea is midline Resp: Lungs CTA, non-labored breathing CV: RRR, no murmur or rubs Abd: soft, non-tender, normoactive BTs Skin: appears to have post-herpetic scars under left upper chest leads Neuro: Alert and oriented X 4 w/no focal deficits. Speech clear and coherent. Extremities: moves all 4 extremities, is ambulatory, negative Luke?s sign Psyche: very pleasant normal mood and affect. Objective Labs Result Diagrams: 04/03/22 16:50 04/03/22 16:50 Labs: Laboratory Results - last 24 hr 04/03/22 04/03/22 04/03/22 16:50 16:50 16:50 WBC 12.3 H RBC 3.51 L Hgb 10.3 L Hct 30.7 L MCV 87.6 MCH 29.4 MCHC 33.6 RDW 14.1 Plt Count 344 Neut % (Auto) 66.7 Lymph % (Auto) 28.4 Drew % (Auto) 3.9 Eos % (Auto) 0.7 L Baso % (Auto) 0.3 Neut # (Auto) 8200 H Lymph # (Auto) 3500 Drew # (Auto) 500 Eos # (Auto) 100 Baso # (Auto) 0 PT 11.9 INR 1.1 APTT 29 Sodium 136 L Potassium 3.7 Chloride 107 Carbon Dioxide 26 BUN 33 H Creatinine 0.58 Estimated GFR > 60 BUN/Creatinine Ratio 56.9 H Glucose 146 H Calcium 8.7 Total Bilirubin 0.9 AST 27 ALT 19 Alkaline Phosphatase 42 Total Protein 6.2 L Albumin 3.6 Globulin 2.6 Albumin/Globulin Ratio 1.4 SARS-CoV-2 (PCR) Blood Type Antibody Screen 04/03/22 04/03/22 17:11 17:43 WBC RBC Hgb Hct MCV MCH MCHC RDW Plt Count Neut % (Auto) Lymph % (Auto) Drew % (Auto) Eos % (Auto) Baso % (Auto) Neut # (Auto) Lymph # (Auto) Drew # (Auto) Eos # (Auto) Baso # (Auto) PT INR APTT Sodium Potassium Chloride Carbon Dioxide BUN Creatinine Estimated GFR BUN/Creatinine Ratio Glucose Calcium Total Bilirubin AST ALT Alkaline Phosphatase Total Protein Albumin Globulin Albumin/Globulin Ratio SARS-CoV-2 (PCR) Negative Blood Type O Positive Antibody Screen Negative Assessment & Plan Assessment & Plan narrative: Josefa Winkler is observed overnight for a suspected upper GI bleed and for frequent monitoring of her blood counts and transfuse if necessary. Suspected upper GI bleed, acute and present on admission * Serial CBCs q 6 hours * NPO except chips and meds * IV protonix 40 mg bid * Dr. Dwyer, General Surgery has been notified and may scope her in the am * ED attempted obtain records from [facility] regarding an upper GI bleed in approximately 2011 involving a 4 day hospital stay. Essential hypertension * Continue home dose of amlodipine 10 mg po daily Dyslipidemia, chronic * Continue home dose of atorvastatin 20 mg po at bedtime VTE Prophylaxis: Wells risk score 0 Bilateral SCDs Pharmacological VTE prophylaxis contraindicated in the setting of active upper GI bleeding Patient is placed into observation as her stay is not expected to exceed 2 midnights. FEN: IV fluids: ns at 100, diet: NPO except ice and meds, labs: CBC, C/BMP, liver enzymes, Mag, PT/INR Consultants Dr. Dwyer, General Surgery care and involvement in the patient?s care is appreciated. Dispo: probable discharge to home Code status: DNR/DNI as discussed with the patient who identifies her , Alex as her surrogate and POA. [X] I have utilized all available immediate resources to obtain, update, or review of the patient's current medications COVID-19 COVID-19 status: Negative Result date/Date tested (Pos, Neg/Pending): 04/03/22 Scores Wells' Criteria for PE Clinical signs and symptoms of DVT: No PE is #1 Dx or equally likely: No Heart rate > 100: No Immobilization at least 3 days or surg in previous 4 weeks: No History of PE or DVT: No Hemoptysis: No Malignancy w/Treatment within 6 months or palliative: No Wells' PE Score total: 0 Quality VTE Deep Vein Thrombosis/Pulmonary Embolism Present on Admission: No MIPS - Admit I confirm the patient?s Advance Care Plan is present, Code status is documented, Surrogate decision maker is in patient?s record [If Yes, STOP here]: Yes MIPS - DC The patient has current or prior documentation of left ventricular ejection fraction (LVEF) less than 40%, or moderate or severely depressed left ventricular systolic function.: No
[2022-04-03] MEDS: ATORVASTATIN 20 MG TABLET PO (20:53)
[2022-04-03 21:30] VITALS: BMI 21.5
[2022-04-03 21:40] VITALS: O2SAT 97
[2022-04-03 21:47] VITALS: BP 116/50; PULSE 72; RESP 16; TEMP 37.2; O2SAT 99
[2022-04-03] MEDS: PANTOPRAZOLE 40 MG VIAL IV (21:53)
[2022-04-03] MEDS: SODIUM CHLORIDE 0.9% 1,000 ML 100 ML IV (21:53)
[2022-04-03 23:02] LABS: Add Manual Diff / Slide Review NO; Basophils Absolute Auto 0 /uL (0-100); Basophils Percent Auto 0.4 % (0-2); Eosinophils Absolute Auto 0 /uL (0-450); Eosinophils Percent Auto 0.3 % (2-4); Hemoglobin 9.6 g/dL (12.0-16.0); Lymphocytes Absolute Auto 3200 /uL (1100-4500); Lymphocytes Percent Auto 28.1 % (25-40); Mean Corpuscular HGB Conc 34.3 % (30-36); Mean Corpuscular Hemoglobin 29.5 PG (26-34); Monocytes Absolute Auto 500 /uL (0-900); Monocytes Percent Auto 4.1 % (3-14); Neutrophils Absolute Auto 7700 /uL (1500-7000); Neutrophils Percent Auto 67.1 % (50-75); Platelet Count 188 X10^3/uL (150-400); Red Blood Cell Count 3.25 X10^6/uL (4.0-5.2); Red Cell Distribution Width 14.3 % (11.6-14.8); White Blood Cell Count 11.5 X10^3/uL (4.5-11.0)
[2022-04-04] VITALS (18 sets, daily range): BP systolic 97–134; BP diastolic 39–55; PULSE 69–78; RESP 12–18; TEMP 36.3–37.2; O2SAT 95–99; BMI 21.5
--- NOTE | 2022-04-04 | PATH_ITS ---
[facility] Accession Number: [id number] . 01 Material submitted: . stomach - RANDOM ANTRUM . 01 Diagnosis: Stomach, Random Antrum, Biopsy: Antral mucosa with mild chronic gastritis. Negative for Helicobacter by immunohistochemistry. Negative for intestinal metaplasia. Negative for dysplasia and malignancy. MRV 04/09/2022 1212 Local . 01 Electronically signed: . Anel Joseph MD, Pathologist NPI- [id number] . 01 Gross description: . RANDOM ANTRUM: Received in formalin are 3 fragment(s) of guy, soft tissue measuring 0.4 x 0.1 x 0.1 cm to 0.2 x 0.1 x 0.1 cm submitted entirely in 1 cassette(s) /CPE 04/05/2022 0826 Local . 01 Microscopic: . An immunohistochemical stain was performed to evaluate for Helicobacter organisms and is negative. The control stain showed appropriate reactivity. . * This test was developed and its performance characteristics determined by [facility]. It has not been cleared or approved by the U.S. Food and Drug Administration. The FDA has determined that such clearance or approval is not necessary. This test is used for clinical purposes. It should not be regarded as investigational or for research. . 01 Pathologist provided ICD-10: R10.9 . 01 CPT . 079829, Q11471 Specimen Comment: A courtesy copy of this report has been sent to [phone] Performed at: 01 [facility] [address] [place] [address], [place], [place] [id number] MD Corky Berry MD Phone: [phone]
[2022-04-04 06:31] LABS: BUN Creatinine Ratio 38.9 (6-22); Blood Urea Nitrogen 21 mg/dL (7-17); Calcium 7.6 mg/dL (8.4-10.2); Carbon Dioxide 23 mmol/L (22-32); Chloride 113 mmol/L (98-107); Estimated Glomerular Filt Rate > 60 mL/min (>60); Glucose 91 mg/dL (80-110); HEMOLYSIS < 15 (0-50); Potassium 3.5 mmol/L (3.4-5.1); Sodium 140 mmol/L (137-145)
[2022-04-04] MEDS: SODIUM CHLORIDE 0.9% 1,000 ML 100 ML IV ×2 (08:28→20:48)
[2022-04-04] MEDS: PANTOPRAZOLE 40 MG VIAL IV ×2 (08:31→20:45)
[2022-04-04 09:12] LABS: Hematocrit 25.7 % (36-46); Hemoglobin 8.7 g/dL (12.0-16.0)
--- NOTE | 2022-04-04 13:55 | P.PN_ITS ---
Subjective Subjective Date Patient Seen: 04/04/22 Interval history: Still with some stomach pain, no bowel movements thus far as of early this afternoon. No nausea or vomiting. H/h continued to decline. Planned for endoscopy this afternoon. Exam Vital Signs (past 8 hours): - 04/04/22 07:40 04/04/22 08:43 04/04/22 08:28 Temperature 99.0 F Pulse Rate 70 Respiratory Rate 16 Blood Pressure 134/50 L Pulse Oximetry 97 95 Oxygen Delivery Method Room Air Room Air Oxygen Flow Rate 0 04/04/22 08:28 04/04/22 12:00 Temperature 98.7 F Pulse Rate 77 Respiratory Rate 18 Blood Pressure 115/42 L Pulse Oximetry 95 97 Oxygen Delivery Method Room Air Oxygen Flow Rate 0 Oxygen Delivery Method Room Air Oxygen Flow Rate 0 Narrative Exam Narrative: Gen: Alert, oriented well appearing female in NAD. HEENT: normocephalic, atraumatic, conjunctiva clear, sclera non-icteric, oral mucosa pink and moist Neck: supple, full ROM, no JVD, trachea is midline Resp: Lungs CTA, non-labored breathing CV: RRR, no murmur or rubs Abd: soft, non-tender, normoactive BTs Neuro: Alert and oriented X 4 w/no focal deficits. Speech clear and coherent. Extremities: no edema or joint effusion Psyche: very pleasant normal mood and affect. Objective Labs Result Diagrams: 04/04/22 09:00 04/04/22 05:35 Labs: Laboratory Results - last 24 hr 04/03/22 04/03/22 04/03/22 16:50 16:50 16:50 WBC 12.3 H RBC 3.51 L Hgb 10.3 L Hct 30.7 L MCV 87.6 MCH 29.4 MCHC 33.6 RDW 14.1 Plt Count 344 Neut % (Auto) 66.7 Lymph % (Auto) 28.4 Spencer % (Auto) 3.9 Eos % (Auto) 0.7 L Baso % (Auto) 0.3 Neut # (Auto) 8200 H Lymph # (Auto) 3500 Spencer # (Auto) 500 Eos # (Auto) 100 Baso # (Auto) 0 PT 11.9 INR 1.1 APTT 29 Sodium 136 L Potassium 3.7 Chloride 107 Carbon Dioxide 26 BUN 33 H Creatinine 0.58 Estimated GFR > 60 BUN/Creatinine Ratio 56.9 H Glucose 146 H Calcium 8.7 Magnesium Total Bilirubin 0.9 AST 27 ALT 19 Alkaline Phosphatase 42 Total Protein 6.2 L Albumin 3.6 Globulin 2.6 Albumin/Globulin Ratio 1.4 SARS-CoV-2 (PCR) Blood Type Antibody Screen 04/03/22 04/03/22 04/03/22 17:11 17:43 22:51 WBC RBC Hgb Hct MCV MCH MCHC RDW Plt Count Neut % (Auto) Lymph % (Auto) Spencer % (Auto) Eos % (Auto) Baso % (Auto) Neut # (Auto) Lymph # (Auto) Spencer # (Auto) Eos # (Auto) Baso # (Auto) PT INR APTT Sodium Potassium Chloride Carbon Dioxide BUN Creatinine Estimated GFR BUN/Creatinine Ratio Glucose Calcium Magnesium 2.0 Total Bilirubin AST ALT Alkaline Phosphatase Total Protein Albumin Globulin Albumin/Globulin Ratio SARS-CoV-2 (PCR) Negative Blood Type O Positive Antibody Screen Negative 04/03/22 04/04/22 04/04/22 22:51 05:35 09:00 WBC 11.5 H RBC 3.25 L Hgb 9.6 L 8.7 L Hct 28.0 L 25.7 L MCV 86.0 MCH 29.5 MCHC 34.3 RDW 14.3 Plt Count 188 Neut % (Auto) 67.1 Lymph % (Auto) 28.1 Spencer % (Auto) 4.1 Eos % (Auto) 0.3 L Baso % (Auto) 0.4 Neut # (Auto) 7700 H Lymph # (Auto) 3200 Spencer # (Auto) 500 Eos # (Auto) 0 Baso # (Auto) 0 PT INR APTT Sodium 140 Potassium 3.5 Chloride 113 H Carbon Dioxide 23 BUN 21 H Creatinine 0.54 Estimated GFR > 60 BUN/Creatinine Ratio 38.9 H Glucose 91 Calcium 7.6 L Magnesium Total Bilirubin AST ALT Alkaline Phosphatase Total Protein Albumin Globulin Albumin/Globulin Ratio SARS-CoV-2 (PCR) Blood Type Antibody Screen [facility] Medical History Acute right-sided low back pain without sciatica Chronic pain in right shoulder Essential hypertension (05/01/11) Gastroesophageal reflux disease (04/05/13) 5 Hyperlipidemia (05/06/14) Osteoarthritis (05/01/11) Osteoporosis (05/17/15) Pelvic somatic dysfunction Postherpetic neuralgia (05/01/17) Sacral region somatic dysfunction Segmental and somatic dysfunction of abdomen and other regions Shingles (03/27/17) Tinnitus Tobacco use disorder (05/01/11) Surgical History History of endoscopy (07/05/13) History of esophagogastroduodenoscopy (EGD) (05/27/13) History of laparoscopic cholecystectomy (07/06/13) Status post blepharoplasty of both eyes (08/26/12) Family History Father Old age Mother Renal failure Brother Cerebral aneurysm Brother Down's syndrome Social History household members: spouse Smoking Status: Current some day smoker quit status: considering quitting alcohol intake: current Assessment & Plan Assessment & Plan narrative: Josefa Winkler is admitted with acute blood loss anemia secondary to presumed UGI bleeding. Suspected upper GI bleed with acute blood loss anemia, present on admission * plan for endoscopy today with general surgery, appreciate consultation * continue NPO/IVF, IV PPI BID for now. H/h now to 8.7 from 10.3 on admission. * has history of PUD with prior interventions at [facility], pending records request. * continue to follow h/h, goal Hg >7. Essential hypertension * will stop home amlodipine for now given acute blood loss anemia. Dyslipidemia, chronic * Continue home dose of atorvastatin 20 mg po at bedtime VTE Prophylaxis: Wells risk score 0 Bilateral SCDs Pharmacological VTE prophylaxis contraindicated in the setting of active upper GI bleeding Dispo: discharge to home, timing depending on EGD results and cessation of bleeding. Code status: DNR/DNI as discussed with the patient who identifies her , Alex as her surrogate and POA. COVID-19 COVID-19 status: Negative Result date/Date tested (Pos, Neg/Pending): 04/03/22 Time Spent With Patient Critical Care time: I spent a total of [] minutes of critical care time on this patient's care today; this time is exclusive of procedural time. Quality VTE Deep Vein Thrombosis/Pulmonary Embolism Present on Admission: No
--- NOTE | 2022-04-04 15:15 | CM.DANOTE ---
Initial DCP Assessment Note Pt is a 76 yo female, resident of [place], arrives w/symptoms of a suspected GI Bleed and scheduled for endoscopy this afternoon w/general surgery PCP: Khalida Willis Payer: [employer] Reviewed chart, met w/patient and spouse to introduce role. Patient and spouse live in [facility] and active at baseline, both retired and volunteers throughout the community. Patient/spouse have adult children, state they do not live locally. Patient expects no needs from this [employer] and is very appreciative for the visit CM team will plan to follow closely in case any DC needs or concerns arise; expect patient to return home w/no needs CORDELIA Mena Discharge Planning/Care Management Discharge Assessment Start: 04/04/22 14:41 Freq: Status: Active Protocol: Document 04/04/22 15:08 MUNIR (Rec: 04/04/22 15:15 [id number]) Discharge Planning Assessment Assigned [employer] CORDELIA Donald DPOA/Assigned Designee Name Alex Orellana, spouse Contact Information [phone] Advance Directives? No History Provided By Patient,Significant Other, Medical Record Prior Living Arrangements House Household Members spouse Type of transporation used prior to Drives own vehicle admit Independent with ADL's Yes Is patient alert and oriented? Yes Barriers to Discharge No Comment Patient plans to return home w /her supportive spouse upon DC Discharge Plan Home Referrals Initiated None needed
[2022-04-04] MEDS: LACTATED RINGERS 1,000 ML 42 ML IV (15:35)
--- NOTE | 2022-04-04 15:43 | PM.CN ---
History of Present Illness Consult details Date Patient Seen: 04/04/22 Time Patient Seen: 15:43 Chief complaint: GI bleed Narrative: Josefa is a 76-year-old woman who presented with melena and hematemesis last night. Her hemoglobin has been steadily decreasing from her admission to this morning. She reports that she has had upper GI bleeding 2 times in the past few years. Both times the bleeding was controlled with EGD. She has never had abdominal surgery. Meds Home Medications and Allergies Home Medications Medication Instructions Recorded Confirmed Type ACETAMINOPHEN (TYLENOL ARTHRITIS) 650 mg PO SEE INSTRUCTIONS ##0 02/25/13 04/03/22 History diclofenac sodium 1 % topical gel 1 tobias topical BID PRN ##100 11/28/17 04/03/22 Rx (Voltaren) amlodipine 10 mg tablet 10 mg PO DAILY #90 tabs 01/30/22 04/03/22 Rx atorvastatin 20 mg tablet See Rx Instructions .Route 01/31/22 04/03/22 Rx .COMPLEX #90 tabs Allergies Allergy/AdvReac Type Severity Reaction Status Date / Time Penicillins [PENICILLINS] AdvReac Mild FAMILY HX Verified 04/04/22 13:37 Exam Vital Signs (past 8 hours): - 04/04/22 08:43 04/04/22 08:28 04/04/22 08:28 Temperature Pulse Rate Respiratory Rate Blood Pressure Pulse Oximetry 95 95 Oxygen Delivery Method Room Air Room Air Room Air Oxygen Flow Rate 04/04/22 12:00 04/04/22 14:24 04/04/22 15:32 Temperature 98.7 F 98.1 F Pulse Rate 77 77 Respiratory Rate 18 16 Blood Pressure 115/42 L 119/53 L Pulse Oximetry 97 98 97 Oxygen Delivery Method Room Air Room Air Oxygen Flow Rate 0 Oxygen Delivery Method Room Air Oxygen Flow Rate 0 Const General: No acute distress Resp Effort & Inspection: normal respiratory effort GI Palpation: soft Objective Labs Result Diagrams: 04/04/22 09:00 04/04/22 05:35 Labs: Laboratory Results - last 24 hr 04/03/22 04/03/22 04/03/22 16:50 16:50 16:50 WBC 12.3 H RBC 3.51 L Hgb 10.3 L Hct 30.7 L MCV 87.6 MCH 29.4 MCHC 33.6 RDW 14.1 Plt Count 344 Neut % (Auto) 66.7 Lymph % (Auto) 28.4 Granite % (Auto) 3.9 Eos % (Auto) 0.7 L Baso % (Auto) 0.3 Neut # (Auto) 8200 H Lymph # (Auto) 3500 Granite # (Auto) 500 Eos # (Auto) 100 Baso # (Auto) 0 PT 11.9 INR 1.1 APTT 29 Sodium 136 L Potassium 3.7 Chloride 107 Carbon Dioxide 26 BUN 33 H Creatinine 0.58 Estimated GFR > 60 BUN/Creatinine Ratio 56.9 H Glucose 146 H Calcium 8.7 Magnesium Total Bilirubin 0.9 AST 27 ALT 19 Alkaline Phosphatase 42 Total Protein 6.2 L Albumin 3.6 Globulin 2.6 Albumin/Globulin Ratio 1.4 SARS-CoV-2 (PCR) Blood Type Antibody Screen 04/03/22 04/03/22 04/03/22 17:11 17:43 22:51 WBC RBC Hgb Hct MCV MCH MCHC RDW Plt Count Neut % (Auto) Lymph % (Auto) Granite % (Auto) Eos % (Auto) Baso % (Auto) Neut # (Auto) Lymph # (Auto) Granite # (Auto) Eos # (Auto) Baso # (Auto) PT INR APTT Sodium Potassium Chloride Carbon Dioxide BUN Creatinine Estimated GFR BUN/Creatinine Ratio Glucose Calcium Magnesium 2.0 Total Bilirubin AST ALT Alkaline Phosphatase Total Protein Albumin Globulin Albumin/Globulin Ratio SARS-CoV-2 (PCR) Negative Blood Type O Positive Antibody Screen Negative 04/03/22 04/04/22 04/04/22 22:51 05:35 09:00 WBC 11.5 H RBC 3.25 L Hgb 9.6 L 8.7 L Hct 28.0 L 25.7 L MCV 86.0 MCH 29.5 MCHC 34.3 RDW 14.3 Plt Count 188 Neut % (Auto) 67.1 Lymph % (Auto) 28.1 Granite % (Auto) 4.1 Eos % (Auto) 0.3 L Baso % (Auto) 0.4 Neut # (Auto) 7700 H Lymph # (Auto) 3200 Granite # (Auto) 500 Eos # (Auto) 0 Baso # (Auto) 0 PT INR APTT Sodium 140 Potassium 3.5 Chloride 113 H Carbon Dioxide 23 BUN 21 H Creatinine 0.54 Estimated GFR > 60 BUN/Creatinine Ratio 38.9 H Glucose 91 Calcium 7.6 L Magnesium Total Bilirubin AST ALT Alkaline Phosphatase Total Protein Albumin Globulin Albumin/Globulin Ratio SARS-CoV-2 (PCR) Blood Type Antibody Screen [facility] Medical History Acute right-sided low back pain without sciatica Chronic pain in right shoulder Essential hypertension (05/01/11) Gastroesophageal reflux disease (04/05/13) 5 Hyperlipidemia (05/06/14) Osteoarthritis (05/01/11) Osteoporosis (05/17/15) Pelvic somatic dysfunction Postherpetic neuralgia (05/01/17) Sacral region somatic dysfunction Segmental and somatic dysfunction of abdomen and other regions Shingles (03/27/17) Tinnitus Tobacco use disorder (05/01/11) Surgical History History of endoscopy (07/05/13) History of esophagogastroduodenoscopy (EGD) (05/27/13) History of laparoscopic cholecystectomy (07/06/13) Status post blepharoplasty of both eyes (08/26/12) Family History Father Old age Mother Renal failure Brother Cerebral aneurysm Brother Down's syndrome Social History household members: spouse Tobacco & Substance Use Smoking Status: Current some day smoker quit status: considering quitting alcohol intake: current Assessment & Plan Assessment and plan (1) Acute upper gastrointestinal bleeding: Status: Acute Plan We discussed the risks benefits and alternatives of esophagogastroduodenoscopy. She wishes to proceed. Time Spent With Patient Critical Care time: I spent a total of [] minutes of critical care time on this patient's care today; this time is exclusive of procedural time.
--- NOTE | 2022-04-04 16:23 | PM.OP.EGD ---
Operative Date/Time/Diagnoses Date of procedure: 04/04/22 Time of procedure: 16:23 Pre-op diagnosis: Acute blood loss anemia Procedure & Clinicians Study performed: Esophagogastroduodenoscopy Same procedure as scheduled: Yes Surgeon: Daniel Dwyer Procedure Notes Procedure in detail: Surgeon: Daniel Dwyer MD Anesthesia: Rizwan Medrano MD A timeout was performed. General endotracheal anesthesia was induced. A bite blocked was placed. The patient remained in the supine position. The endoscope was inserted through the bite block and passed through the esophagus and into the stomach. There was no fresh blood or old blood clot in the stomach. There was a large ulcer in the antrum with a whitish base. There is no visible vessel and no active bleeding. The scope was then advanced into the 2nd portion of the duodenum. The duodenal mucosa appeared normal. There was no fresh blood or old blood clot. The scope was withdrawn into the duodenal bulb and no abnormalities were noted. The scope was withdrawn into the stomach. Random biopsies were taken from the antrum adjacent to the ulcer however the ulcer itself was left undisturbed. The rest of the stomach was normal. The scope was retroflexed and a very small hiatal hernia was noted. The scope was withdrawn into the esophagus and no abnormalities were noted. The remainder of the esophagus was normal. The scope was withdrawn. The patient was awakened and brought to recovery. Findings: Large pre-pyloric ulcer with no evidence of active bleeding Sedation minutes: 7 Post-procedure Plan for aftercare: Recommend PPI therapy, smoking cessation and a follow-up EGD in about 3 months
--- NOTE | 2022-04-04 16:47 | SUR.PHASEI ---
Pt awake, alert. Transferred to room 204 by Memo DEJESUS in [facility]. Tolerating few small sips of water. Slightly itchy/sore throat. No difficulty swallowing or breathing. Report called to Yessy DEJESUS.
--- NOTE | 2022-04-04 17:09 | PC.NURSE ---
pt back from PACU. no complaints. tolerating clear liquid diet.
[2022-04-04] MEDS: ATORVASTATIN 20 MG TABLET PO (20:45)
[2022-04-04] MEDS: metroNIDAZOLE 500 MG TABLET PO (20:45)
[2022-04-04] MEDS: CLARITHROMYCIN 500 MG TABLET PO (20:45)
--- NOTE | 2022-04-04 22:08 | PC.NURSE ---
Patient had one 300mL dark, tarry, loose stool at 1949. Patients vitals 105/55, heart rate 74bpm, no complaints of dizziness or nausea. DIMAS Conner notified at 1954. No new orders given.
[2022-04-05 00:51] VITALS: RESP 18
[2022-04-05 03:00] VITALS: O2SAT 96
[2022-04-05 03:43] VITALS: BP 127/50; PULSE 80; RESP 16; TEMP 36.3; O2SAT 96
[2022-04-05 05:45] LABS: Add Manual Diff / Slide Review NO; Basophils Absolute Auto 0 /uL (0-100); Basophils Percent Auto 0.5 % (0-2); Eosinophils Absolute Auto 300 /uL (0-450); Eosinophils Percent Auto 3.6 % (2-4); Hematocrit 25.7 % (36-46); Hemoglobin 8.8 g/dL (12.0-16.0); Lymphocytes Absolute Auto 2100 /uL (1100-4500); Lymphocytes Percent Auto 23.7 % (25-40); Mean Corpuscular HGB Conc 34.4 % (30-36); Mean Corpuscular Hemoglobin 29.9 PG (26-34); Monocytes Absolute Auto 500 /uL (0-900); Monocytes Percent Auto 5.2 % (3-14); Neutrophils Absolute Auto 5800 /uL (1500-7000); Platelet Count 235 X10^3/uL (150-400); Red Blood Cell Count 2.95 X10^6/uL (4.0-5.2); Red Cell Distribution Width 14.1 % (11.6-14.8); White Blood Cell Count 8.7 X10^3/uL (4.5-11.0)
[2022-04-05 05:48] LABS: BUN Creatinine Ratio 15.7 (6-22); Blood Urea Nitrogen 8 mg/dL (7-17); Calcium 7.5 mg/dL (8.4-10.2); Carbon Dioxide 25 mmol/L (22-32); Chloride 111 mmol/L (98-107); Estimated Glomerular Filt Rate > 60 mL/min (>60); Glucose 93 mg/dL (80-110); HEMOLYSIS < 15 (0-50); Potassium 3.2 mmol/L (3.4-5.1); Sodium 139 mmol/L (137-145)
[2022-04-05 06:00] VITALS: BP 143/46; PULSE 79; RESP 14; TEMP 36.6; O2SAT 99
[2022-04-05] MEDS: SODIUM CHLORIDE 0.9% 1,000 ML 100 ML IV (06:45)
[2022-04-05 09:08] VITALS: O2SAT 99
[2022-04-05] MEDS: PANTOPRAZOLE 40 MG VIAL IV (09:24)
[2022-04-05] MEDS: CLARITHROMYCIN 500 MG TABLET PO (09:24)
[2022-04-05] MEDS: POTASSIUM CHLORIDE 20 MEQ/15 ML UDC 40 MEQ PO (09:24)
[2022-04-05] MEDS: metroNIDAZOLE 500 MG TABLET PO (09:24)
--- NOTE | 2022-04-05 12:08 | PC.NURSE ---
Day shift: paperwork signed and all questions answered. Pt has all personal belongings. scripts sent electronic to Pt's pharmacy. Left unit via WC at approx 1210. Her spouse is driving her home.
--- NOTE | 2022-04-06 17:19 | P.DS_ITS ---
History of Present Illness History of Present Illness Date Patient Seen: 04/05/22 Chief complaint: GI bleed Narrative: Kirk Orellana is a pleasant 76 y.o. female smoker with a history of peptic ulcer disease, hypertension and hyperlipidemia presented with a one day history of having dark tarry stool X 2, then bright red hematemasis with clots X 2 over the course of 24 hours. She has been feeling nauseous, upper epigastric pain, lightheadedness and feeling out of sorts. She denies fever, sweats or chills, difficulty breathing, chest pain or constipation. Denies history of upper or lo wer extremity neuropathy or lower extremity swelling. Patient is borderline febrile 99, blood pressure 116/50, heart rate 72, respiratory rate 16, oxygen saturation of 99% on room air she weighs 50 kg the BMI of 21.5.? She has a mildly elevated WBC at 11.5 RBC 3.25 hemoglobin 9.6 and hematocrit 28.0 down from a hemoglobin and hematocrit 10.3 and 30.7 respectively.? Does have mild left shift at 7700, sodium 136, BUN 33 glucose 146 COVID-19 PCR is negative and she is O positive blood type. Discharge Providers Provider Date of admission: 04/03/22 20:14 Discharge Date: 04/05/22 Primary care physician: Khalida Willis MD Consults: 04/03/22 20:33 Consult to General Surgery Routine Comment: Consulting Provider: Daniel Dwyer Reason for consultation: Suspected upper GIB, hx peptic ulcer disease Has provider been notified: Yes Discharge provider: Nisha Muller MD Summary Hospital Course Discharge Diagnosis: 1. Large pre-pyloric ulcer with no evidence of bleeding 2. hypertension 3. hyperlipidemia 4. Osteoarthritis 5.Postherpetic neuralgia 6. Nicotine Hospital Course: She was admitted to the hospital for evaluation of dark tarry stools and bright red hematemsis. The patient underwent Upper Endoscopy by Dr. Dwyer which revealed a prepyloric ulcer without active bleeding or stigmata of recent hemorrhage. She did not require transfusion as her hemoglobin remained above 8. As she had several prior ulcers, she was empircally treated for h/pylori . She tolerated her diet and was deemed appropriate for discharge home. Status at Discharge Cognitive/behavioral status at discharge: oriented Functional status at discharge: independent ambulation Overall status at discharge: patient is progressing back to baseline Exam Vital Signs (past 8 hours): Oxygen Delivery Method Room Air Oxygen Flow Rate 0 Narrative Exam Narrative: Pleasant female in no acute distress Resp Other: Lungs: Clear to auscultation Cardio Other: CV: RRR nl Sl S2 GI Other: Abd: soft/non tender Extrem Other: no edema Objective Labs Result Diagrams: 04/05/22 05:20 04/05/22 05:20 [facility] Medical History Acute right-sided low back pain without sciatica Chronic pain in right shoulder Essential hypertension (05/01/11) Gastroesophageal reflux disease (04/05/13) 5 Hyperlipidemia (05/06/14) Osteoarthritis (05/01/11) Osteoporosis (05/17/15) Pelvic somatic dysfunction Postherpetic neuralgia (05/01/17) Sacral region somatic dysfunction Segmental and somatic dysfunction of abdomen and other regions Shingles (03/27/17) Tinnitus Tobacco use disorder (05/01/11) Surgical History History of endoscopy (07/05/13) History of esophagogastroduodenoscopy (EGD) (05/27/13) History of laparoscopic cholecystectomy (07/06/13) Status post blepharoplasty of both eyes (08/26/12) Family History Father Old age Mother Renal failure Brother Cerebral aneurysm Brother Down's syndrome Social History household members: spouse Smoking Status: Current some day smoker quit status: considering quitting alcohol intake: current Discharge Assessment & Plan Assessment and Plan Assessment: 1.Large pre-pyloric ulcer with no evidence of bleeding 2. hypertension 3. hyperlipidemia 4. Osteoarthritis 5.Postherpetic neuralgia 6. Nicotine Plan of Treatment: discharge home on antibiotics and ppi. Follow up with PCP next week Discharge Plan Discharge Plan Patient Disposition: Home Discharge orders & Medications Prescriptions: New clarithromycin 500 mg Tablet 500 mg PO BID Qty: 13 0RF metronidazole 500 mg Tablet 500 mg PO TID 13 Days Qty: 39 0RF pantoprazole [Protonix] 40 mg tablet,delayed release (DR/EC) 40 mg PO BID 30 Days Qty: 60 0RF Continued ACETAMINOPHEN (TYLENOL ARTHRITIS) 650 mg PO SEE INSTRUCTIONS Qty: 0 amlodipine 10 mg tablet 10 mg PO DAILY Qty: 90 0RF atorvastatin 20 mg tablet See Rx Instructions .ROUTE .COMPLEX Qty: 90 0RF Dose Instruction: TAKE ONE TABLET BY MOUTH NIGHTLY AT BEDTIME Rx Instructions: TAKE ONE TABLET BY MOUTH NIGHTLY AT BEDTIME Discontinued diclofenac sodium [Voltaren] 1 % gel 1 tobias Topical BID PRNQty: 100 0RF Follow up/Referrals: Khalida Willis MD [Primary Care Provider] - Suzanne Choudhury MD [Physician] - (New Patient appointment post discharge) Discharge Health Status Multidrug resistant organism: No MDRO Diet/Activity/Treatments Diet: Diet as Tolerated Skin/Wound/Dressing Care Report to your healthcare provider any signs of infection, such as:: chills, fever Visit Report/Discharge Packet Instructions: DI for Gastric Ulcer, How to Prevent Falls Stand Alone Forms: EGD Result: Isld Surg Discharge Data Primary Care Provider: Khalida Willis Quality VTE Deep Vein Thrombosis/Pulmonary Embolism Present on Admission: No
== END 2022-04-05 12:10 | disposition home or self-care (01) | DRG 378 ==
LOC: ED 19:55 → AC 20:16
PROVIDERS: Emergency Medicine; Internal Medicine; Surgery; Admitting Provider Nurse Practitioner Family; Emergency Provider Emergency Medicine; PCP Family Medicine; Referring Provider Emergency Medicine; Visit Provider Nurse Practitioner Family
PROC: 0DJ08ZZ Inspection of Upper Intestinal Tract, Via Natural or Artificial Opening Endoscopic (ICD-10-PCS; CPT 43235; principal; 2022-04-04 14:45)
DX: K25.4 Chronic or unspecified gastric ulcer with hemorrhage (principal); D62 Acute posthemorrhagic anemia; I10 Essential (primary) hypertension; E78.5 Hyperlipidemia, unspecified; M19.91 Primary osteoarthritis, unspecified site; F17.210 Nicotine dependence, cigarettes, uncomplicated; Z66 Do not resuscitate; Z20.822 Contact with and (suspected) exposure to COVID-19
CPT/HCPCS: 36415; 43239; 80048; 80053; 83735; 85014; 85018; 85025; 85610; 85730; 86850; 86900; 86901; 87635; 93005; 93010; 94760; 96374; 99152; 99232; 99284; C9803; C9113; J0330; J2405; J2704; J3010

== ENCOUNTER → 2022-04-26 12:07 | Outpatient (CLI) | payer MEDICARE, OTHER, SELFPAY ==
[2022-04-25 13:21] VITALS: BMI 21.5
[2022-04-26 12:50] LABS: Add Manual Diff / Slide Review NO; Basophils Absolute Auto 0 /uL (0-100); Basophils Percent Auto 0.2 % (0-2); Eosinophils Absolute Auto 200 /uL (0-450); Hematocrit 31.2 % (36-46); Hemoglobin 10.4 g/dL (12.0-16.0); Lymphocytes Absolute Auto 1200 /uL (1100-4500); Lymphocytes Percent Auto 24.4 % (25-40); Mean Corpuscular HGB Conc 33.4 % (30-36); Mean Corpuscular Hemoglobin 29.1 PG (26-34); Mean Corpuscular Volume 87.1 fL (80-100); Monocytes Absolute Auto 300 /uL (0-900); Monocytes Percent Auto 6.1 % (3-14); Neutrophils Absolute Auto 3200 /uL (1500-7000); Neutrophils Percent Auto 65.3 % (50-75); Platelet Count 317 X10^3/uL (150-400); Red Blood Cell Count 3.59 X10^6/uL (4.0-5.2); Red Cell Distribution Width 15.2 % (11.6-14.8); White Blood Cell Count 4.9 X10^3/uL (4.5-11.0)
== END ==
PROVIDERS: PCP Pediatrics; Referring Provider Pediatrics; Visit Provider Pediatrics
DX: D64.9 Anemia, unspecified (principal); K92.2 Gastrointestinal hemorrhage, unspecified
CPT/HCPCS: 36415; 85025

== ENCOUNTER → 2022-06-19 10:07 | Outpatient (CLI) | payer MEDICARE, OTHER, SELFPAY ==
[2022-04-25 13:21] VITALS: BMI 21.5
[2022-06-19 11:05] LABS: COVID19 -Nasal RAPID Negative (Negative)
== END ==
PROVIDERS: PCP Pediatrics; Visit Provider Surgery
DX: Z20.822 Contact with and (suspected) exposure to COVID-19 (principal); Z01.812 Encounter for preprocedural laboratory examination
CPT/HCPCS: 87635; C9803

== ENCOUNTER 2022-06-20 12:18 | Day surgery (SDC) | payer MEDICARE, OTHER, SELFPAY ==
[2022-04-25 13:21] VITALS: BMI 21.5
[2022-06-20] VITALS (7 sets, daily range): BP systolic 107–133; BP diastolic 39–70; PULSE 65–77; RESP 14–18; TEMP 36.3–36.8; O2SAT 94–99; BMI 21.4
[2022-06-20] MEDS: LACTATED RINGERS 1,000 ML 150 ML IV (12:56)
--- NOTE | 2022-06-20 13:25 | PM.HP.1 ---
History of Present Illness History of Present Illness Date Patient Seen: 06/20/22 Time Patient Seen: 13:25 Chief complaint: EGD Narrative: Josefa is here for her follow-up EGD. Had an ulcer found over 3 months ago on an EGD but she is feeling much better now with no signs of ongoing bleeding. She has plans to travel in the upcoming months. Patient History Medical History Acute pain of left shoulder Acute right-sided low back pain without sciatica Anemia Chronic pain in right shoulder Essential hypertension (05/01/11) Gastroesophageal reflux disease (04/05/13) 5 Hyperlipidemia (05/06/14) Osteoarthritis (05/01/11) Osteoporosis (05/17/15) Pelvic somatic dysfunction Postherpetic neuralgia (05/01/17) Sacral region somatic dysfunction Segmental and somatic dysfunction of abdomen and other regions Shingles (03/27/17) Tinnitus Tobacco use disorder (05/01/11) Surgical History History of endoscopy (07/05/13) History of esophagogastroduodenoscopy (EGD) (05/27/13) History of laparoscopic cholecystectomy (07/06/13) Status post blepharoplasty of both eyes (08/26/12) Family & Social History Family History Father Old age Mother Renal failure Brother Cerebral aneurysm Brother Down's syndrome Social History: household members spouse Tobacco & Substance use: Tobacco type cigarettes Smoking Status Former smoker alcohol intake current alcohol intake frequency holiday/special occasion Substance Use Type marijuana Meds Home Medications and Allergies Home Medications Medication Instructions Recorded Confirmed Type ACETAMINOPHEN (TYLENOL ARTHRITIS) 650 mg PO SEE INSTRUCTIONS ##0 02/25/13 06/20/22 History pantoprazole 40 mg tablet,delayed 40 mg PO QAM 30 days #30 tabs 04/26/22 06/20/22 Rx release (Protonix) atorvastatin 20 mg tablet See Rx Instructions .Route 04/30/22 06/20/22 Rx .COMPLEX #90 tabs amlodipine 10 mg tablet 10 mg PO DAILY #90 tabs 05/14/22 06/20/22 Rx Allergies Allergy/AdvReac Type Severity Reaction Status Date / Time Penicillins [PENICILLINS] AdvReac Mild FAMILY HX Verified 06/20/22 12:28 Exam Vital Signs (past 8 hours): - 06/20/22 12:40 Temperature 98.3 F Pulse Rate 68 Respiratory Rate 18 Blood Pressure 133/70 Pulse Oximetry 97 Oxygen Delivery Method Room Air Oxygen Delivery Method Room Air Const General: healthy appearing Resp Effort & Inspection: normal respiratory effort Assessment & Plan Assessment and plan (1) Peptic ulcer disease: Status: Acute Plan Plan to proceed with an EGD. She understands the risks and wishes to proceed. Time Spent With Patient Critical Care time: I spent a total of [] minutes of critical care time on this patient's care today; this time is exclusive of procedural time.
[2022-06-20] MEDS: LIDOCAINE 4% SOLN 50 ML 20 ML TOP (13:30)
[2022-06-20] MEDS: MIDAZOLAM 5 MG/5 ML VIAL 4 MG IV (13:38)
[2022-06-20] MEDS: fentaNYL 100 MCG/2 ML INJ 75 MCG IV (13:38)
--- NOTE | 2022-06-20 13:41 | PM.OP.EGD ---
Operative Date/Time/Diagnoses Date of procedure: 06/20/22 Time of procedure: 13:41 Pre-op diagnosis: History of peptic ulcer Post-op diagnosis: same Procedure & Clinicians Study performed: Esophagogastroduodenoscopy Same procedure as scheduled: Yes Surgeon: Daniel Dwyer Procedure Notes Procedure in detail: Surgeon: Daniel Dwyer MD A timeout was performed. Topical lidocaine was administered to the posterior oropharynx. A bite blocked was placed. The patient was positioned in the left lateral decubitus position. Sedation was administered with Versed and fentanyl. The endoscope was inserted through the bite block and passed through the esophagus and stomach and into the duodenum. The duodenal mucosa appeared normal. The scope was withdrawn into the duodenal bulb and no abnormalities were noted. The scope was withdrawn into the stomach. There was a faint scar where the prior ulcer had been. There were no active ulcers. The rest of the stomach was normal. The scope was retroflexed and no hiatal hernia was noted. The scope was withdrawn into the esophagus and no abnormalities were noted. The remainder of the esophagus was normal. The scope was withdrawn. The patient was awakened and brought to recovery. Versed: 4 Fentanyl: 75 Findings: [] Sedation minutes: 7 Post-procedure Disposition: PACU
== END 2022-06-20 14:21 | disposition home or self-care (01) ==
PROVIDERS: PCP Pediatrics; Referring Provider Surgery; Visit Provider Surgery
PROC: 0DJ08ZZ Inspection of Upper Intestinal Tract, Via Natural or Artificial Opening Endoscopic (ICD-10-PCS; CPT 43235; principal; 2022-06-20 13:15)
DX: Z87.11 Personal history of peptic ulcer disease (principal)
CPT/HCPCS: 43235; 99152; J2250; J3010

== ENCOUNTER → 2022-10-15 09:11 | Outpatient (CLI) | payer MEDICARE, OTHER, SELFPAY ==
[2022-04-25 13:21] VITALS: BMI 21.5
--- NOTE | 2022-10-15 09:12 | DI.MRI.S_ITS ---
PROCEDURE: MR SHOULDER LT WO CON INDICATIONS: Eval/assess TECHNIQUE: Noncontrast oblique coronal T2 fast spin echo with fat saturation, oblique sagittal T1 spin echo and T2 fast spin echo with fat saturation, axial T1 spin echo and T2 fast spin echo with fat saturation through the shoulder. COMPARISON: None. FINDINGS: Image quality: Excellent. Rotator cuff: Low-grade articular and bursal surface partial thickness tear at its insertion on humeral head is seen extending to musculotendinous junction. Distal infraspinatus tendinosis is seen. Low-grade intrasubstance partial-thickness tear involving distal subscapularis is noted. No full-thickness rotator cuff tendon rupture. Sagittal images demonstrate no significant muscle atrophy. Bones and bursae: No bone marrow contusions or fractures. Moderate acromioclavicular joint osteoarthritic changes are seen with significant joint space narrowing, subchondral sclerosis and prominent downward osteophyte formation depressing on musculotendinous junction of supraspinatus. Small to moderate amount of joint fluid and subacromial subdeltoid bursal fluid is seen. Capsule and soft tissues: There is signal abnormality and contour irregularity in superior anterior labrum at 12 to 1 o'clock position suggestive of superior anterior labral tear. The long head of the biceps tendon demonstrates normal location and morphology. The rotator interval appears normal, without fibrosis. The coracohumeral ligament is normal in thickness. IMPRESSION: 1. Low-grade articular and bursal surface partial thickness tear involving distal supraspinatus extending to musculotendinous junction. Distal infraspinatus tendinosis. Low-grade intrasubstance partial-thickness tear involving distal subscapularis. No full-thickness rotator cuff tendon rupture. No significant muscle atrophy. 2. Moderate acromioclavicular joint osteoarthritis. No fracture or dislocation. Small to moderate amount of joint effusion and subacromial subdeltoid bursal fluid. 3. Finding is concerning for subtle superior anterior labral tear at 12 to 1 o'clock position. Dictated by: Lokesh Patino M.D. on 10/15/2022 at 14:28 Approved by: Lokesh Patino M.D. on 10/15/2022 at 14:33
--- NOTE | 2022-10-15 09:12 | DI.RAD.S_ITS ---
PROCEDURE: XR SHOULDER LT MIN 2V INDICATIONS: Left shoulder pain TECHNIQUE: 3 views of the shoulder were acquired. COMPARISON: None. FINDINGS: Bones: No fractures or dislocations. Moderate acromioclavicular joint and glenohumeral joint osteoarthritic changes are seen with joint space narrowing, subchondral sclerosis and marginal osteophyte formation. No suspicious bony lesions. Visualized ribs appear intact. Soft tissues: No suspicious soft tissue calcifications. IMPRESSION: Moderate left shoulder joint osteoarthritis. No fracture or dislocation. No gross soft tissue abnormalities. Dictated by: Lokesh Patino M.D. on 10/15/2022 at 10:22 Approved by: Lokesh Patino M.D. on 10/15/2022 at 10:23
== END ==
PROVIDERS: Family Provider Pediatrics; PCP Family Medicine; Referring Provider Family Medicine; Visit Provider Family Medicine
DX: M75.112 Incomplete rotator cuff tear or rupture of left shoulder, not specified as traumatic (principal); M19.012 Primary osteoarthritis, left shoulder; M25.412 Effusion, left shoulder; M25.512 Pain in left shoulder
CPT/HCPCS: 73030; 73221

== ENCOUNTER → 2023-12-14 12:21 | Outpatient (CLI) | payer MEDICARE, OTHER, SELFPAY ==
[2022-10-16 14:56] VITALS: BMI 21.5
[2023-12-14 13:25] LABS: Influenza A - CEPHEID Flu A NEGATIVE (NEGATIVE); Influenza B - CEPHEID Flu B NEGATIVE (NEGATIVE); Respiratory Syncytial Virus Negative (Negative)
[2023-12-14 13:43] LABS: COVID-19 CEPHEID 4-PLEX PCR Negative (Negative)
== END ==
PROVIDERS: Family Provider Pediatrics; PCP Student in an Organized Health Care Education/Training Program; Visit Provider Physician Assistant Surgical
DX: R05.9 Cough, unspecified (principal)
CPT/HCPCS: 0241U

== ENCOUNTER → 2024-05-31 | Outpatient (CLI) | payer MEDICARE, OTHER, SELFPAY ==
[2022-10-16 14:56] VITALS: BMI 21.5
--- NOTE | 2024-05-31 14:44 | DI.MG.S_ITS ---
BILATERAL DIGITAL SCREENING MAMMOGRAM 3D/2D WITH CAD: 05/31/2024 CLINICAL: Routine screening. No prior exams were available for comparison. There are scattered areas of fibroglandular density in both breasts (category b / 25%-50% glandular tissue). Current study was also evaluated with a Computer Aided Detection (CAD) system. There is a mass in the right breast at 11 o'clock anterior depth. There are calcifications in the right breast central to the nipple posterior depth. No other significant masses, calcifications, or other findings are seen in either breast. IMPRESSION: INCOMPLETE: NEEDS ADDITIONAL IMAGING EVALUATION The mass in the right breast at 11 o'clock anterior depth is indeterminate. Recommend diagnostic mammogram and ultrasound for further evaluation. The calcifications in the right breast central to the nipple posterior depth are indeterminate. Diagnostic mammogram for additional views to include mediolateral and spot magnification views is recommended. Based on the Tyrer Cuzick model (a risk assessment model) the patient's lifetime risk is 2.4% and her 10 year risk is 0.0%. According to the ACR, ACS, and NCCN guidelines, an annual breast MRI exam along with mammogram is recommended if the patient's lifetime risk is 20% or greater. This exam was interpreted at Station ID: [id number]. NOTE: For mammograms, a report in lay terms will be sent to the patient. Approximately 15% of breast malignancies will not be visualized mammographically. In the management of a palpable breast mass, a negative mammogram must not discourage biopsy of a clinically suspicious lesion. Electronically Signed By: Kassy Jenkins M.D., Ph.D. eb/:06/01/2024 10:32:59 letter sent: Additional Imaging Needed ACR BI-RADS Category 0: Incomplete 3340F
== END ==
PROVIDERS: Family Provider Pediatrics; PCP Student in an Organized Health Care Education/Training Program; Referring Provider Student in an Organized Health Care Education/Training Program; Visit Provider Student in an Organized Health Care Education/Training Program
DX: Z12.31 Encounter for screening mammogram for malignant neoplasm of breast (principal); R92.323 Mammographic fibroglandular density, bilateral breasts
CPT/HCPCS: 77063; 77067

== ENCOUNTER → 2024-06-10 09:18 | Outpatient (CLI) | payer MEDICARE, OTHER, SELFPAY ==
[2022-10-16 14:56] VITALS: BMI 21.5
--- NOTE | 2024-06-10 09:19 | DI.MG.S_ITS ---
UNILATERAL RIGHT DIGITAL DIAGNOSTIC MAMMOGRAM 3D/2D WITH ADDITIONAL VIEWS: 06/10/2024 CLINICAL: Additional evaluation requested from prior study. Comparison is made to exam dated: 05/31/2024 mammogram - [facility]. There are scattered areas of fibroglandular density in the right breast (category b / 25%-50% glandular tissue). There is a 0.5 cm oval mass with a spiculated margin in the right breast at 10 o'clock anterior depth. This is seen in additional views. There also are 0.9 cm grouped coarse calcifications in the right breast central to the nipple middle depth. There is possible layering of the calcifications on lateral view, although findings are obscured by respiratory motion. No other significant masses or calcifications are seen in the breast. IMPRESSION: INCOMPLETE: NEEDS ADDITIONAL IMAGING EVALUATION The 0.5 cm oval mass in the right breast at 10 o'clock anterior depth is indeterminate. An ultrasound is recommended. The 0.9 cm grouped coarse calcifications in the right breast central to the nipple middle depth are probably benign. A follow-up mammogram in 6 months is recommended. Based on the Tyrer Cuzick model (a risk assessment model) the patient's lifetime risk is 2.4% and her 10 year risk is 0.0%. According to the ACR, ACS, and NCCN guidelines, an annual breast MRI exam along with mammogram is recommended if the patient's lifetime risk is 20% or greater. This exam was interpreted at Station ID: [id number]. NOTE: For mammograms, a report in lay terms will be sent to the patient. Approximately 15% of breast malignancies will not be visualized mammographically. In the management of a palpable breast mass, a negative mammogram must not discourage biopsy of a clinically suspicious lesion. Electronically Signed By: Juan polanco/neal:06/10/2024 11:35:56 ACR BI-RADS Category 0: Incomplete 3340F
--- NOTE | 2024-06-10 09:19 | DI.US.S_ITS ---
LIMITED ULTRASOUND OF RIGHT BREAST AND AXILLA: 06/10/2024 CLINICAL: Patient returns today to evaluate a focal asymmetry in the right breast. Comparison is made to exams dated: 05/31/2024 mammogram, 06/10/2024 mammogram, and 01/16/2012 mammogram - [facility]. Color flow ultrasound of the right breast 10-11 o'clock, and axilla regions was performed. Sanchez scale images of the real-time examination were reviewed. There is a 0.5 cm x 0.4 cm x 0.4 cm irregular mass with an indistinct and spiculated margin in the right breast at 10 o'clock anterior depth 4 cm from the nipple. This irregular mass is hypoechoic with posterior acoustic shadowing. This correlates with mammography findings. Color flow imaging demonstrates that there is vascularity present. No significant abnormalities were seen sonographically in the right axilla. IMPRESSION: HIGHLY SUGGESTIVE OF MALIGNANCY The 0.5 cm x 0.4 cm x 0.4 cm irregular mass in the right breast is highly suggestive of malignancy. An ultrasound guided biopsy is recommended. The findings and recommendations were discussed with the patient via telephone at the time of the exam. Additionally, recommend 6-month mammographic follow up of the probably benign calcifications in the right breast seen on same-day mammography. No significant abnormalities were seen sonographically in the right axilla. This exam was interpreted at Station ID: [id number]. Electronically Signed By: Juan Barnett M.D. ar/:06/10/2024 11:44:41 letter sent: Biopsy Required Ultrasound BI-RADS: 5 Highly suggestive of malignancy
== END ==
LOC: MAMMO 09:19
PROVIDERS: Family Provider Pediatrics; PCP Student in an Organized Health Care Education/Training Program; Referring Provider Student in an Organized Health Care Education/Training Program; Visit Provider Student in an Organized Health Care Education/Training Program
DX: R92.8 Other abnormal and inconclusive findings on diagnostic imaging of breast (principal); R92.1 Mammographic calcification found on diagnostic imaging of breast; N63.11 Unspecified lump in the right breast, upper outer quadrant; R92.321 Mammographic fibroglandular density, right breast
CPT/HCPCS: 76642; 77065; G0279

== ENCOUNTER → 2024-06-24 09:52 | Outpatient (CLI) | payer MEDICARE, OTHER, SELFPAY ==
[2022-10-16 14:56] VITALS: BMI 21.5
--- NOTE | 2024-06-24 09:53 | DI.US.S_ITS ---
ULTRASOUND GUIDED BIOPSY RIGHT BREAST WITH MARKING DEVICE INSERTED: 06/24/2024 CLINICAL: Right breast mass. PATIENT CONSENT: Risks (minor bleeding, infection, vasovagal reaction and repeat procedure), benefits and alternatives were explained to the patient and written informed consent was obtained. Correlation is made to exams dated: 06/24/2024 mammogram, 06/10/2024 ultrasound, 06/10/2024 mammogram, 05/31/2024 mammogram, and 01/16/2012 mammogram - [facility]. An ultrasound guided biopsy using real-time ultrasound was performed for the mass located in the right breast at 10 o'clock, 4 cm from the nipple. The skin was prepped in the usual manner. An 18G [employer] [place] biopsy needle was placed adjacent to the mass under ultrasound guidance. Once the needle was documented to be in the correct location, 6 specimens were obtained. Biopsy Vision clip was placed in the biopsy cavity. The specimen was sent to the laboratory for pathological analysis. Post biopsy mammogram demonstrates the Vision biopsy clip 1.0 cm posteromedial from the targeted mass. IMPRESSION: ULTRASOUND GUIDED BIOPSY MALIGNANT Successful ultrasound guided core biopsy of right breast mass at 10 o'clock, 4 cm from the nipple. Biopsy clip is approximately 1.0 cm posteromedially displaced from the targeted mass. Pathology demonstrates malignancy invasive ductal carcinoma. Pathology is concordant with imaging. Recommend surgical and oncological consultation. Recommend stereotactic guided core biopsy of calcifications in the right breast central posterior depth. This exam was interpreted at Station ID: [id number]. Vu Jenkins M.D., Ph.D. lizzeth robertson/:07/02/2024 14:33:01
--- NOTE | 2024-06-24 09:53 | DI.MG.S_ITS ---
UNILATERAL RIGHT DIGITAL DIAGNOSTIC MAMMOGRAM 3D/2D POST-PROCEDURE IMAGING FOR MARKER PLACEMENT: 06/24/2024 CLINICAL: Right post clip. Comparison is made to exams dated: 06/10/2024 mammogram, 05/31/2024 mammogram, and 01/16/2012 mammogram - [facility]. There are scattered areas of fibroglandular density in the right breast (category b / 25%-50% glandular tissue). Post biopsy mammogram demonstrates biopsy clip 1.0 cm posteromedial to the targeted mass on CC view and 0.6 cm posterior to the mass on ML view. IMPRESSION: POST PROCEDURE MAMMOGRAM FOR MARKER PLACEMENT Post biopsy mammogram demonstrates hydromark biopsy clip centered within the mass. Please see separately dictated ultrasound guided biopsy report for additional details and pathology. Future imaging is recommended as follows: 12/11/2024 follow-up right mammogram. Based on the Tyrer Cuzick model (a risk assessment model) the patient's lifetime risk is 2.4% and her 10 year risk is 0.0%. According to the ACR, ACS, and NCCN guidelines, an annual breast MRI exam along with mammogram is recommended if the patient's lifetime risk is 20% or greater. This exam was interpreted at Station ID: [id number]. NOTE: For mammograms, a report in lay terms will be sent to the patient. Approximately 15% of breast malignancies will not be visualized mammographically. In the management of a palpable breast mass, a negative mammogram must not discourage biopsy of a clinically suspicious lesion. Electronically Signed By: Kassy Jenkins M.D., Ph.D. eb/:06/29/2024 08:25:14 ACR BI-RADS Category Post-procedure mammogram for marker placement
--- NOTE | 2024-06-24 11:13 | PATH_ITS ---
[facility] Accession Number: [id number] No. of containers..01 Tissue . 01 Material submitted: . breast - BRIGHT BREAST 1000 . 01 Diagnosis: RIGHT BREAST MASS AT 10 O'CLOCK, 4 CM FROM NIPPLE: Invasive carcinoma of the breast. Please see Case Summary. . CASE SUMMARY - INVASIVE CARCINOMA OF THE BREAST Specimen Procedure: Needle biopsy. Specimen laterality: Right. . Tumor Tumor site: Upper outer quadrant, 10 o'clock, 4 cm from nipple. Histologic type: Invasive carcinoma of no special type (ductal). Histologic grade: Glandular/tubular differentiation: Score 1-2 of 3. Nuclear pleomorphism: Score 1 of 3. Mitotic rate: Score 1 of 3. Overall grade: Grade 1 (score 3-4 of 9). Ductal carcinoma in situ: Not identified. Lymphatic and/or vascular invasion: Not identified. . Special Studies: Predictive marker immunohistochemical studies are performed on block A1 with the invasive carcinoma showing the following results: . Estrogen receptor (SP1): Positive (91-100%, strong intensity). Progesterone receptor (1E2): Positive (81-90%, strong intensity). Her2 (4B5): Equivocal (2+). HER2 FISH studies pending; results will be reported as an adddendum. . Internal controls for ER and VT are positive. Cold ischemic time cannot be calculated. The scoring criteria for breast biomarkers by immunohistochemistry is based on the ASCO/CAP guidelines (Diomedes AC et al, J Clin Oncol: 2018 May 05;36(20):8990-9884 and Riri ME et al, Arch Pathol Lab Med: 2009;134(6):907-22). Deparaffinized sections of formalin fixed tissue (along with appropriate positive controls) are incubated with the above antibody(s). Using the automated [place] stainer, tissue is incubated with the designated antibody which is then localized by a non-biotin, dual polymer detection system. The external controls are reviewed for appropriate reactivity and found to be adequate. Results on the target cell population are indicated above. These tests have not been validated on decalcified tissue. MRV 06/30/2024 1618 Local . 01 Comment: As part of ongoing director of quality control, this case is also reviewed by Dr. Mensah, who agrees with the interpretation. . Dr. Lovely Chang discussed results with Dr. Vigil's nurse, Taryn Castro, on 06/30/2024 at approximately 3:51 p.m. . 01 Electronically signed: . Lovely Chang MD, Pathologist NPI- [id number] . 01 Gross description: . Received in formalin with two patient identifiers and no site on jar, are multiple yellow-guy soft tissue fragments aggregating to 0.9 x 0.5 x 0.1 cm. Filtered and submitted entirely in cassette A1. . The specimen was removed on 06/24/2024 at 11:13 a.m. Colod ischemic time cannot be calculated. Total fixation time is approximately 39 hours. ([id number]) /WILFRED 06/25/2024 0803 Local . 01 Microscopic: . An immunohistochemistry panel is performed to further evaluate the cells of interest. The control stains show appropriate reactivity. . RESULTS: Block A1 P63: Absent in regions of interest, consistent with invasive tumor. GATA3: Positive in regions of interest, consistent with tumor of breast origin. E-cadherin: Positive in regions of interest, consistent with ductal differentiation. . * This test was developed and its performance characteristics determined by [employer]. It has not been cleared or approved by the U.[place]. Food and Drug Administration. The FDA has determined that such clearance or approval is not necessary. This test is used for clinical purposes. It should not be regarded as investigational or for research. . 01 Pathologist provided ICD-10: R92.8, C50.911 . 01 CPT . 541943, K43935, Q01455, 709661, [id number], [id number] Performed at: [address] [address], [place], [place] [id number] MD Corky Berry MD Phone: [phone]
== END ==
PROVIDERS: Family Provider Pediatrics; PCP Student in an Organized Health Care Education/Training Program; Referring Provider Student in an Organized Health Care Education/Training Program; Visit Provider Student in an Organized Health Care Education/Training Program
DX: R92.8 Other abnormal and inconclusive findings on diagnostic imaging of breast (principal); C50.411 Malignant neoplasm of upper-outer quadrant of right female breast; Z17.0 Estrogen receptor positive status [ER+]; Z98.890 Other specified postprocedural states
CPT/HCPCS: 19083; 77065

== ENCOUNTER → 2025-04-28 15:13 | Outpatient (CLI) | payer MEDICARE, OTHER, SELFPAY ==
[2022-10-16 14:56] VITALS: BMI 21.5
--- NOTE | 2025-04-28 15:16 | DI.RAD.S_ITS ---
PROCEDURE: XR CHEST 2V INDICATIONS: recurrent cough TECHNIQUE: 2 views of the chest were acquired. COMPARISON: None. FINDINGS: Surgical changes and devices: Right breast clips Lungs and pleura: Lungs are clear. No pleural effusions or pneumothorax. Mediastinum: Mediastinal contours are normal. Heart size is normal. Bones and chest wall: No suspicious bony abnormalities. Soft tissues appear unremarkable. IMPRESSION: No evidence acute pulmonary process. Dictated by: Pradeep Gutierrez M.D. on 04/28/2025 at 15:40 Approved by: Pradeep Gutierrez M.D. on 04/28/2025 at 15:41
== END ==
PROVIDERS: Family Provider Pediatrics; PCP Student in an Organized Health Care Education/Training Program; Referring Provider Student in an Organized Health Care Education/Training Program; Visit Provider Student in an Organized Health Care Education/Training Program
DX: R05.9 Cough, unspecified (principal)
CPT/HCPCS: 71046